=== PATIENT | male | born 1980 | race African-American/Black ===

== ENCOUNTER 2018-03-15 09:44 | Emergency (ER) | payer MEDICAID ==
[~2018-03-15] VITALS: Ht 182.9 cm; Wt 68.2 kg
[~2018-03-15 09:44] MED LIST: ALBU8.5H8 IH; BECL8.7A5 IH
[2018-03-15] MEDS ORDERED: ALBUTEROL SULFATE 2.5 MG/0.5 ML NEB SOLUTION NEB ONE (10:30)
[2018-03-15] MEDS ORDERED: IPRATROPIUM BROMIDE 0.5 MG/2.5 ML NEB SOLUTION NEB ONE (10:30)
[2018-03-15] MEDS ORDERED: PredniSONE 20 MG TABLET PO ONE (10:30)
[2018-03-15 10:40] LABS: BASOPHILS % (AUTO) 0.9 % (0.0-2.0); EOSINOPHILS % (AUTO) 0.3 % (1.0-6.0); HEMATOCRIT 45.4 % (41-53); HEMOGLOBIN 15.6 g/dL (13.5-17.5); LYMPHOCYTES # (AUTO) 0.8 K/uL (1.0-4.8); LYMPHOCYTES % (AUTO) 12.8 % (22.0-44.0); MEAN CORPUSCULAR HEMOGLOBIN 30.4 pg (26.0-34.0); MEAN CORPUSCULAR HGB CONC 34.3 G/dL (31.0-37.0); MEAN CORPUSCULAR VOLUME 89 fL (80-100); MONOCYTES # (AUTO) 0.7 K/uL (0.1-1.0); NEUTROPHILS # (AUTO) 4.8 K/uL (1.8-7.7); PLATELET COUNT (AUTO) 176 K/uL (150-450); RED BLOOD CELL COUNT(AUTO) 5.13 MIL/uL (4.50-5.90); RED CELL DISTRIBUTION WIDTH 12.9 % (11.5-14.5)
[2018-03-15] MEDS ORDERED: 0.9% SODIUM CHLORIDE 5 ML NEB SOLUTION NEB ONE ×2 (10:42→11:40)
[2018-03-15 10:48] LABS: ANION GAP 5 mmol/L (8-16); CARBON DIOXIDE 29 mmol/L (22-29); CHLORIDE 101 mmol/L (98-107); CREATININE 1.07 mg/dL (0.60-1.30); GLOMERULAR FILTR. RATE CALC > 60 mL/min (>60); GLUCOSE,RANDOM 103 mg/dL (70-110); SODIUM SERUM 135 mmol/L (136-145); UREA NITROGEN, BLOOD 12 mg/dL (7-18)
[2018-03-15 10:56] LABS: ALANINE AMINOTRANSFERASE 27 U/L (12-78); ALBUMIN 3.6 g/dL (3.4-5.0); ALKALINE PHOSPHATASE 81 U/L (46-116); ASPARTATE AMINOTRANSFERASE 24 U/L (15-37); BILIRUBIN,TOTAL 0.6 mg/dL (0.1-1.0); TOTAL PROTEIN, SERUM 7.8 g/dL (6.4-8.2)
[2018-03-15] MEDS ORDERED: AZITHROMYCIN 500 MG/NS 250 ML IV ONE (11:15)
[2018-03-15] MEDS ORDERED: ALBUTEROL SULFATE 5 MG/ML 20 ML NEB SOLN [BULK] NEB ONE (11:15)
[2018-03-15] MEDS ORDERED: ACETAMINOPHEN 500 MG TABLET PO ONE (14:00)
[2018-03-15] MEDS ORDERED: SODIUM CHLORIDE 0.9% 2,000 ML IV ONE (14:00)
[2018-03-15] MEDS ORDERED: ALBUTEROL SULFATE HFA 90 MCG/PUFF 8 GM INHALER IH ONE (16:45)
[2018-03-15] MEDS ORDERED: BECLOMETHASONE DIPR HFA 80 MCG/PUFF 10.6 GM INHALER IH ONE (16:45)
[2018-03-15 17:06] LABS: AMPHET/METH SCREEN,URINE NEGATIVE (NEGATIVE); BARBITURATE SCREEN, URINE NEGATIVE (NEGATIVE); BENZODIAZEPINES SCREEN,URINE NEGATIVE (NEGATIVE); CANNABINOID SCREEN,URINE NEGATIVE (NEGATIVE); COCAINE SCREEN,URINE NEGATIVE (NEGATIVE); METHADONE SCREEN, URINE NEGATIVE (NEGATIVE); OPIATE SCREEN,URINE NEGATIVE (NEGATIVE)
[2018-03-15 17:07] LABS: PHENCYCLIDINE SCREEN,URINE NEGATIVE (NEGATIVE)
[2018-03-15 17:23] VITALS: BP 121/79
== END 2018-03-15 17:25 | disposition home or self-care (01) ==
LOC: EMS 09:45
DX: J45.901 Unspecified asthma with (acute) exacerbation (principal); R00.0 Tachycardia, unspecified; F17.210 Nicotine dependence, cigarettes, uncomplicated
CPT/HCPCS: 36415; 71046; 80053; 80307; 85025; 93005; 94644; 96365; 96366; 99285; J0456; J7030; J7512; J7611; J7613; 94640; J3535

== ENCOUNTER 2018-10-19 19:04 | Emergency (ER) | payer MEDICAID ==
[~2018-10-19] VITALS: Ht 182.9 cm; Wt 80.0 kg
[~2018-10-19 19:04] MED LIST changes: -BECL8.7A5 IH
[2018-10-19 19:12] VITALS: BP 141/71
== END 2018-10-19 23:10 | disposition left against medical advice (07) ==
LOC: EMS 19:05
DX: R05 Cough (principal); Z53.21 Procedure and treatment not carried out due to patient leaving prior to being seen by health care provider

== ENCOUNTER 2018-10-20 07:41 | Emergency (ER) | payer MEDICAID, OTHER ==
[~2018-10-20] VITALS: Ht 182.9 cm; Wt 79.5 kg
[2018-10-20] MEDS ORDERED: ALBUTEROL SULFATE HFA 90 MCG/PUFF 8 GM INHALER IH ONE (08:45)
[2018-10-20 09:43] VITALS: BP 144/93
== END 2018-10-20 09:56 | disposition home or self-care (01) ==
LOC: EMS 07:42
DX: J40 Bronchitis, not specified as acute or chronic (principal); J43.9 Emphysema, unspecified; J45.909 Unspecified asthma, uncomplicated; F17.210 Nicotine dependence, cigarettes, uncomplicated
CPT/HCPCS: 94640; J3535

== ENCOUNTER 2019-06-23 16:13 | Emergency (ER) | payer OTHER ==
[~2019-06-23] VITALS: Ht 182.9 cm; Wt 68.2 kg
[2019-06-23] MEDS ORDERED: 0.9% SODIUM CHLORIDE 5 ML NEB SOLUTION NEB ONE ×2 (16:28→18:00)
[2019-06-23] MEDS ORDERED: ALBUTEROL SULFATE 2.5 MG/0.5 ML NEB SOLUTION NEB ONE (16:30)
[2019-06-23] MEDS ORDERED: IPRATROPIUM BROMIDE 0.5 MG/2.5 ML NEB SOLUTION NEB ONE ×2 (16:30→17:45)
[2019-06-23] MEDS ORDERED: DEXAMETHASONE SOD PHOS 4 MG/ML 5 ML VIAL IM ONE (17:45)
[2019-06-23] MEDS ORDERED: ACETAMINOPHEN 325 MG TABLET PO ONE (17:45)
[2019-06-23] MEDS ORDERED: LEVALBUTEROL HCL 1.25 MG/0.5 ML NEB SOLUTION NEB ONE (17:45)
[2019-06-23 19:20] VITALS: BP 131/76
[2019-06-23] MEDS ORDERED: ALBUTEROL SULFATE HFA 90 MCG/PUFF 8 GM INHALER IH ONE (19:30)
== END 2019-06-23 19:35 | disposition home or self-care (01) ==
LOC: EMS 16:16
DX: J45.909 Unspecified asthma, uncomplicated (principal); F17.210 Nicotine dependence, cigarettes, uncomplicated
CPT/HCPCS: 94640; 96372; 99285; J1100; 94644; J3535

== ENCOUNTER 2019-07-26 19:21 | Emergency (ER) | payer OTHER ==
[~2019-07-26] VITALS: Ht 182.9 cm; Wt 68.2 kg
[2019-07-26] MEDS ORDERED: 0.9% SODIUM CHLORIDE 5 ML NEB SOLUTION NEB ONE (19:54)
[2019-07-26] MEDS ORDERED: IPRATROPIUM BROMIDE 0.5 MG/2.5 ML NEB SOLUTION NEB ONE (20:00)
[2019-07-26] MEDS ORDERED: ALBUTEROL SULFATE HFA 90 MCG/PUFF 8 GM INHALER IH ONE (20:00)
[2019-07-26] MEDS ORDERED: ALBUTEROL SULFATE 5 MG/ML 20 ML NEB SOLN [BULK] NEB ONE (20:00)
[2019-07-26] MEDS ORDERED: ACETAMINOPHEN 500 MG TABLET PO ONE (20:15)
[2019-07-26 21:13] VITALS: BP 139/83
== END 2019-07-26 21:29 | disposition home or self-care (01) ==
LOC: EMS 19:22
DX: J45.901 Unspecified asthma with (acute) exacerbation (principal); F17.210 Nicotine dependence, cigarettes, uncomplicated; Z79.899 Other long term (current) drug therapy
CPT/HCPCS: 94640; 94644; J3535

== ENCOUNTER 2019-08-13 08:40 | Emergency (ER) | payer OTHER ==
[~2019-08-13] VITALS: Ht 182.9 cm; Wt 68.2 kg
[2019-08-13] MEDS ORDERED: SYMB8060 IH (08:49)
[2019-08-13] MEDS ORDERED: MethylPREDNISolone SOD SUCC 125 MG/2 ML VIAL IM ONE (09:15)
[2019-08-13] MEDS ORDERED: IPRATROPIUM BROMIDE 0.5 MG/2.5 ML NEB SOLUTION NEB ONE (09:15)
[2019-08-13] MEDS ORDERED: ALBUTEROL SULFATE 2.5 MG/0.5 ML NEB SOLUTION NEB ONE (09:15)
[2019-08-13] MEDS ORDERED: ALBUTEROL SULFATE HFA 90 MCG/PUFF 8 GM INHALER IH ONE (09:30)
[2019-08-13] MEDS ORDERED: ACETAMINOPHEN 500 MG TABLET PO ONE (11:00)
[2019-08-13 12:02] VITALS: BP 132/80
== END 2019-08-13 12:13 | disposition home or self-care (01) ==
LOC: EMS 08:41
DX: R05 Cough (principal); J45.901 Unspecified asthma with (acute) exacerbation; F17.210 Nicotine dependence, cigarettes, uncomplicated
CPT/HCPCS: 94640; 96372; 99284; 99406; J2930; J3535

== ENCOUNTER 2019-09-02 08:06 | Emergency (ER) | payer OTHER ==
[~2019-09-02] VITALS: Ht 170.2 cm; Wt 68.2 kg
[~2019-09-02 08:06] MED LIST changes: +SYMB8060 IH
[2019-09-02] MEDS ORDERED: BECL10.6 IH (08:36)
[2019-09-02 08:58] LABS: BASOPHILS % (AUTO) 0.2 % (0.0-2.0); EOSINOPHILS % (AUTO) 0.1 % (1.0-6.0); HEMATOCRIT 44.5 % (41-53); HEMOGLOBIN 14.5 g/dL (13.5-17.5); LYMPHOCYTES # (AUTO) 0.4 K/uL (1.0-4.8); LYMPHOCYTES % (AUTO) 2.9 % (22.0-44.0); MEAN CORPUSCULAR HEMOGLOBIN 30.3 pg (26.0-34.0); MEAN CORPUSCULAR HGB CONC 32.5 G/dL (31.0-37.0); MEAN CORPUSCULAR VOLUME 93 fL (80-100); MONOCYTES # (AUTO) 0.9 K/uL (0.1-1.0); MONOCYTES % (AUTO) 5.8 % (2.0-9.0); PLATELET COUNT (AUTO) 226 K/uL (150-450); RED BLOOD CELL COUNT(AUTO) 4.77 MIL/uL (4.50-5.90); RED CELL DISTRIBUTION WIDTH 12.9 % (11.5-14.5)
[2019-09-02 09:07] LABS: ANION GAP 5 mmol/L (8-16); CALCIUM, TOTAL 8.7 mg/dL (8.8-10.5); CARBON DIOXIDE 33 mmol/L (22-29); CHLORIDE 103 mmol/L (98-107); CREATININE 1.05 mg/dL (0.60-1.30); GLOMERULAR FILTR. RATE CALC > 60 mL/min (>60); GLUCOSE,RANDOM 122 mg/dL (70-110); POTASSIUM 3.9 mmol/L (3.5-5.1); SODIUM SERUM 141 mmol/L (136-145); UREA NITROGEN, BLOOD 11 mg/dL (7-18)
[2019-09-02 09:12] LABS: ALANINE AMINOTRANSFERASE 42 U/L (12-78); ALBUMIN 3.7 g/dL (3.4-5.0); ALKALINE PHOSPHATASE 91 U/L (46-116); ASPARTATE AMINOTRANSFERASE 34 U/L (15-37); BILIRUBIN,TOTAL 0.8 mg/dL (0.1-1.0); TOTAL PROTEIN, SERUM 8.1 g/dL (6.4-8.2)
[2019-09-02] MEDS ORDERED: ALBUTEROL SULFATE 2.5 MG/0.5 ML NEB SOLUTION NEB ONE (09:15)
[2019-09-02] MEDS ORDERED: SODIUM CHLORIDE 0.9% 1,000 ML IV ONE ×2 (09:15→10:15)
[2019-09-02] MEDS ORDERED: IPRATROPIUM BROMIDE 0.5 MG/2.5 ML NEB SOLUTION NEB ONE (09:15)
[2019-09-02] MEDS ORDERED: DiphenhydrAMINE HCL 50 MG/ML VIAL IVP ONE (09:30)
[2019-09-02] MEDS ORDERED: MethylPREDNISolone SOD SUCC 125 MG/2 ML VIAL IVP ONE (09:30)
[2019-09-02] MEDS ORDERED: ACETAMINOPHEN 500 MG TABLET PO ONE (09:30)
[2019-09-02] MEDS ORDERED: METOCLOPRAMIDE HCL 5 MG/ML 2 ML VIAL IVP ONE (09:30)
[2019-09-02] MEDS ORDERED: AZITHROMYCIN 250 MG TABLET PO ONE (10:15)
[2019-09-02] MEDS ORDERED: ALBUTEROL SULFATE HFA 90 MCG/PUFF 8 GM INHALER IH ONE (11:30)
[2019-09-02 12:16] VITALS: BP 128/78
== END 2019-09-02 13:19 | disposition home or self-care (01) ==
LOC: EMS 08:07
DX: J18.9 Pneumonia, unspecified organism (principal); J45.909 Unspecified asthma, uncomplicated; Z79.899 Other long term (current) drug therapy
CPT/HCPCS: 36415; 71046; 80053; 84484; 85025; 93005; 94640; 96374; 96375; 99284; J1200; J2765; J2930; J7030; J3535

== ENCOUNTER 2019-10-30 02:28 | Emergency (ER) | payer OTHER ==
[~2019-10-30] VITALS: Ht 182.9 cm; Wt 68.2 kg
[~2019-10-30 02:28] MED LIST changes: +BECL10.6 IH
[2019-10-30] MEDS ORDERED: ALBUTEROL SULFATE 2.5 MG/0.5 ML NEB SOLUTION NEB ONE ×2 (02:45→03:35)
[2019-10-30] MEDS ORDERED: MethylPREDNISolone SOD SUCC 125 MG/2 ML VIAL IVP ONE (02:45)
[2019-10-30] MEDS ORDERED: 0.9% SODIUM CHLORIDE 5 ML NEB SOLUTION NEB ONE (02:54)
[2019-10-30 03:07] LABS: BASOPHILS % (AUTO) 0.8 % (0.0-2.0); EOSINOPHILS % (AUTO) 9.4 % (1.0-6.0); HEMATOCRIT 47.8 % (41-53); HEMOGLOBIN 15.4 g/dL (13.5-17.5); LYMPHOCYTES # (AUTO) 1.6 K/uL (1.0-4.8); LYMPHOCYTES % (AUTO) 28.4 % (22.0-44.0); MEAN CORPUSCULAR HEMOGLOBIN 30.1 pg (26.0-34.0); MEAN CORPUSCULAR HGB CONC 32.2 G/dL (31.0-37.0); MEAN CORPUSCULAR VOLUME 93 fL (80-100); MONOCYTES # (AUTO) 0.5 K/uL (0.1-1.0); MONOCYTES % (AUTO) 8.3 % (2.0-9.0); NEUTROPHILS # (AUTO) 3.1 K/uL (1.8-7.7); NEUTROPHILS % (AUTO) 53.1 % (40.0-70.0); PLATELET COUNT (AUTO) 221 K/uL (150-450); RED BLOOD CELL COUNT(AUTO) 5.12 MIL/uL (4.50-5.90); RED CELL DISTRIBUTION WIDTH 12.5 % (11.5-14.5)
[2019-10-30 03:15] LABS: ANION GAP 6 mmol/L (8-16); CALCIUM, TOTAL 8.9 mg/dL (8.8-10.5); CARBON DIOXIDE 30 mmol/L (22-29); CHLORIDE 102 mmol/L (98-107); CREATININE 0.97 mg/dL (0.60-1.30); GLOMERULAR FILTR. RATE CALC > 60 mL/min (>60); GLUCOSE,RANDOM 83 mg/dL (70-110); POTASSIUM 4.5 mmol/L (3.5-5.1); SODIUM SERUM 138 mmol/L (136-145); UREA NITROGEN, BLOOD 5 mg/dL (7-18)
[2019-10-30 03:18] LABS: INR 1.1 (0.9-1.1); PROTHROMBIN TIME 10.8 SEC (9.4-11.6)
[2019-10-30 03:27] LABS: B-TYPE NATRIURETIC PEPTIDE 22 pg/mL (0-100)
[2019-10-30 03:40] LABS: ALANINE AMINOTRANSFERASE 32 U/L (12-78); ALBUMIN 3.7 g/dL (3.4-5.0); ALKALINE PHOSPHATASE 85 U/L (46-116); ASPARTATE AMINOTRANSFERASE 32 U/L (15-37); BILIRUBIN,TOTAL 0.2 mg/dL (0.1-1.0); CREATINE KINASE, TOTAL ONLY 201 U/L (39-308); TOTAL PROTEIN, SERUM 7.9 g/dL (6.4-8.2)
[2019-10-30] MEDS ORDERED: ALBUTEROL SULFATE HFA 90 MCG/PUFF 8 GM INHALER IH ONE (04:15)
[2019-10-30 04:19] LABS: INFLUENZA TYPE A NEGATIVE FOR TYPE A (NEGATIVE); INFLUENZA TYPE B NEGATIVE FOR TYPE B (NEGATIVE)
[2019-10-30] MEDS ORDERED: IBUPROFEN 600 MG TABLET ONE (04:54)
[2019-10-30 04:55] VITALS: BP 136/88
[2019-10-30] MEDS ORDERED: IBUPROFEN 600 MG TABLET PO ONE (04:55)
== END 2019-10-30 05:18 | disposition home or self-care (01) ==
LOC: EMS 02:29
DX: J45.909 Unspecified asthma, uncomplicated (principal); Z03.818 Encounter for observation for suspected exposure to other biological agents ruled out
CPT/HCPCS: 36415; 71045; 80053; 82550; 83880; 84484; 85025; 85610; 85730; 87635; 87804; 93005; 94640; 96374; 99285; J2930; 94060; J3535

== ENCOUNTER 2019-11-04 03:55 | Emergency (ER) | payer OTHER ==
[~2019-11-04] VITALS: Ht 182.9 cm; Wt 55.6 kg
[2019-11-04] MEDS ORDERED: ALBUTEROL SULFATE HFA 90 MCG/PUFF 8 GM INHALER IH ONE (04:45)
[2019-11-04] MEDS ORDERED: MethylPREDNISolone SOD SUCC 125 MG/2 ML VIAL IM ONE (04:45)
[2019-11-04] MEDS ORDERED: EPINEPHrine 1:1,000 [1 MG/ML] AMP SQ ONE (04:45)
[2019-11-04] MEDS ORDERED: MethylPREDNISolone SOD SUCC 125 MG/2 ML VIAL IVP ONE (05:15)
[2019-11-04 06:08] VITALS: BP 130/88
== END 2019-11-04 06:11 | disposition home or self-care (01) ==
LOC: EMS 03:55
DX: J45.901 Unspecified asthma with (acute) exacerbation (principal); Z79.899 Other long term (current) drug therapy
CPT/HCPCS: 94640; 96372; 96374; 99284; J0171; J2930; J3535

== ENCOUNTER 2019-12-22 23:14 | Emergency (ER) | payer OTHER ==
[~2019-12-22] VITALS: Ht 190.5 cm; Wt 79.5 kg
[2019-12-22] MEDS ORDERED: MethylPREDNISolone SOD SUCC 125 MG/2 ML VIAL IVP ONE (23:45)
[2019-12-22] MEDS ORDERED: MAGNESIUM SULFATE 2 GM/WATER 50 ML IV ONE (23:45)
[2019-12-22] MEDS ORDERED: ALBUTEROL SULFATE 5 MG/ML 20 ML NEB SOLN [BULK] NEB ONE (23:45)
[2019-12-23 00:16] LABS: BASOPHILS % (AUTO) 1.1 % (0.0-2.0); EOSINOPHILS % (AUTO) 2.3 % (1.0-6.0); HEMATOCRIT 47.8 % (41-53); HEMOGLOBIN 15.8 g/dL (13.5-17.5); LYMPHOCYTES # (AUTO) 1.5 K/uL (1.0-4.8); LYMPHOCYTES % (AUTO) 26.1 % (22.0-44.0); MEAN CORPUSCULAR HEMOGLOBIN 30.3 pg (26.0-34.0); MEAN CORPUSCULAR HGB CONC 33.1 G/dL (31.0-37.0); MEAN CORPUSCULAR VOLUME 92 fL (80-100); MONOCYTES # (AUTO) 0.6 K/uL (0.1-1.0); MONOCYTES % (AUTO) 9.9 % (2.0-9.0); NEUTROPHILS # (AUTO) 3.6 K/uL (1.8-7.7); NEUTROPHILS % (AUTO) 60.6 % (40.0-70.0); PLATELET COUNT (AUTO) 287 K/uL (150-450); RED BLOOD CELL COUNT(AUTO) 5.21 MIL/uL (4.50-5.90); RED CELL DISTRIBUTION WIDTH 13.2 % (11.5-14.5)
[2019-12-23 00:45] LABS: ANION GAP 13 mmol/L (8-16); CALCIUM, TOTAL 9.2 mg/dL (8.8-10.5); CARBON DIOXIDE 27 mmol/L (22-29); CHLORIDE 102 mmol/L (98-107); CREATININE 1.03 mg/dL (0.60-1.30); GLOMERULAR FILTR. RATE CALC > 60 mL/min (>60); GLUCOSE,RANDOM 100 mg/dL (70-110); SODIUM SERUM 142 mmol/L (136-145); UREA NITROGEN, BLOOD 7 mg/dL (7-18)
[2019-12-23 00:51] LABS: ALANINE AMINOTRANSFERASE 60 U/L (12-78); ALBUMIN 4.1 g/dL (3.4-5.0); ALKALINE PHOSPHATASE 93 U/L (46-116); ASPARTATE AMINOTRANSFERASE 48 U/L (15-37); BILIRUBIN,TOTAL 0.2 mg/dL (0.1-1.0); TOTAL PROTEIN, SERUM 9.2 g/dL (6.4-8.2)
[2019-12-23 01:57] VITALS: BP 125/77
== END 2019-12-23 02:38 | disposition home or self-care (01) ==
LOC: EMS 23:15
DX: J45.901 Unspecified asthma with (acute) exacerbation (principal); Z03.818 Encounter for observation for suspected exposure to other biological agents ruled out
CPT/HCPCS: 36415; 71045; 80053; 83880; 85025; 87635; 94644; 96365; 96366; 96375; 99285; J2930; J3475

== ENCOUNTER 2020-01-13 08:46 | Inpatient (IN) | payer OTHER ==
[~2020-01-13] VITALS: Ht 185.4 cm; Wt 60.0 kg
[~2020-01-13 08:46] MED LIST changes: +ALBUTEROL SULFATE 2.5 MG/0.5 ML NEB SOLUTION NEB ONE
[2020-01-13] MEDS ORDERED: ACETAMINOPHEN 1000 MG/ISO-OSM 100 ML IV ONE (09:00)
[2020-01-13] MEDS ORDERED: MethylPREDNISolone SOD SUCC 125 MG/2 ML VIAL IVP ONE (09:00)
[2020-01-13] MEDS ORDERED: ACETAMINOPHEN 500 MG TABLET PO ONE (09:00)
[2020-01-13] MEDS ORDERED: SODIUM CHLORIDE 0.9% 1,000 ML IV ONE ×2 (09:00→10:45)
[2020-01-13] MEDS ORDERED: ALBUTEROL SULFATE 2.5 MG/0.5 ML NEB SOLUTION NEB ONE ×2 (09:15→13:00)
[2020-01-13] MEDS ORDERED: CefTRIAXone 1 GM/DEXTROSE 50 ML IV ONE (09:30)
[2020-01-13] MEDS ORDERED: AZITHROMYCIN 500 MG/NS 250 ML IV ONE (09:30)
[2020-01-13 10:04] LABS: HEMATOCRIT 43.1 % (41-53); MEAN CORPUSCULAR HEMOGLOBIN 30.5 pg (26.0-34.0); MEAN CORPUSCULAR HGB CONC 32.5 G/dL (31.0-37.0); MEAN CORPUSCULAR VOLUME 94 fL (80-100); PLATELET COUNT (AUTO) 160 K/uL (150-450); RED CELL DISTRIBUTION WIDTH 13.4 % (11.5-14.5)
[2020-01-13 10:24] LABS: D-DIMER 1.15 mg/L FEU (0.00-0.50); INR 1.1 (0.9-1.1); PROTHROMBIN TIME 10.9 SEC (9.4-11.6)
[2020-01-13 10:27] LABS: BAND NEUTROPHILS % (MANUAL) 6 % (0-5); LYMPHOCYTES % (MANUAL) 9 % (22-44); MONOCYTES % (MANUAL) 5 % (2-9); REACTIVE LYMPHOCYTES 2 % (0-0); SEGMENTED NEUTROPHILS % 78 % (40-70)
[2020-01-13 10:28] LABS: B-TYPE NATRIURETIC PEPTIDE 36 pg/mL (0-100)
[2020-01-13 10:30] LABS: ANION GAP 12 mmol/L (8-16); CALCIUM, TOTAL 8.2 mg/dL (8.8-10.5); CARBON DIOXIDE 26 mmol/L (22-29); CHLORIDE 100 mmol/L (98-107); CREATININE 1.02 mg/dL (0.60-1.30); GLOMERULAR FILTR. RATE CALC > 60 mL/min (>60); GLUCOSE,RANDOM 110 mg/dL (70-110); SODIUM SERUM 138 mmol/L (136-145); UREA NITROGEN, BLOOD 9 mg/dL (7-18)
[2020-01-13] MEDS ORDERED: IPRATROPIUM BROMIDE 0.5 MG/2.5 ML NEB SOLUTION NEB ONE (10:30)
[2020-01-13] MEDS ORDERED: ALBUTEROL SULFATE 5 MG/ML 20 ML NEB SOLN [BULK] NEB ONE (10:35)
[2020-01-13 10:44] LABS: LACTIC ACID 4.4 mmol/L (0.4-2.0)
[2020-01-13 10:55] LABS: INFLUENZA TYPE A NEGATIVE FOR TYPE A (NEGATIVE); INFLUENZA TYPE B NEGATIVE FOR TYPE B (NEGATIVE)
[2020-01-13 11:06] LABS: ALANINE AMINOTRANSFERASE 144 U/L (12-78); ALBUMIN 3.7 g/dL (3.4-5.0); ALKALINE PHOSPHATASE 71 U/L (46-116); ASPARTATE AMINOTRANSFERASE 108 U/L (15-37); BILIRUBIN,TOTAL 0.6 mg/dL (0.1-1.0); C-REACTIVE PROTEIN QUANT 2.55 mg/dL (0.00-0.30); CREATINE KINASE, TOTAL ONLY 519 U/L (39-308); FERRITIN 93 ng/mL (26-388); LACTATE DEHYDROGENASE 112 U/L (85-227)
[2020-01-13] MEDS ORDERED: ACETAMINOPHEN 325 MG TABLET PO PRN (11:15)
[2020-01-13] MEDS ORDERED: 0.9% SODIUM CHLORIDE 10 ML SYRINGE IVP PRN (11:15)
[2020-01-13] MEDS ORDERED: ONDANSETRON HCL 4 MG/2 ML VIAL IVP PRN ×2 (11:15→22:15)
[2020-01-13 14:36] VITALS: BP 154/98
[2020-01-13 16:17] LABS: APPEARANCE,URINE CLEAR (CLEAR); BILIRUBIN,URINE NEGATIVE (NEGATIVE); GLUCOSE, URINE (UA) 500 mg/dL (NEGATIVE); KETONES,URINE NEGATIVE (NEGATIVE); LEUKOCYTE ESTERASE ,URINE NEGATIVE (NEGATIVE); NITRATE,URINE NEGATIVE (NEGATIVE); OCCULT BLOOD,URINE NEGATIVE (NEGATIVE); PROTEIN,URINE NEGATIVE (NEGATIVE); UROBILINOGEN,URINE 0.2 mg/dL (<=1.0)
[2020-01-13 16:26] LABS: BACTERIA,URINE None Seen /HPF (None Seen); RBC,URINE None Seen /HPF (0-2); SQUAMOUS EPITHELIAL CELL,UR Rare /LPF (None Seen); WBC,URINE 0-2 /HPF (0-5)
[2020-01-13 18:50] VITALS: BP 142/90
[2020-01-13] MEDS: ZOLPIDEM TARTRATE 10 MG TABLET PO PRN (20:37)
[2020-01-13] MEDS ORDERED: ALBUTEROL SULFATE 2.5 MG/0.5 ML NEB SOLUTION NEB PRN (22:15)
[2020-01-13] MEDS ORDERED: BISACODYL 10 MG RECTAL RECTAL SUPPOSITORY PR PRN (22:15)
[2020-01-13] MEDS ORDERED: MAGNESIUM HYDROXIDE SUSPENSION 30 ML UDCUP PO PRN (22:15)
[2020-01-13] MEDS ORDERED: MORPHINE SULFATE 2 MG/ML SYRINGE IVP PRN (22:15)
[2020-01-13] MEDS ORDERED: ZOLPIDEM TARTRATE 5 MG TABLET PO PRN (22:15)
[2020-01-13] MEDS ORDERED: IPRATROPIUM BROMIDE 0.5 MG/2.5 ML NEB SOLUTION NEB PRN (22:15)
[2020-01-13 23:53] VITALS: BP 129/93
[2020-01-13] MEDS: MethylPREDNISolone SOD SUCC 125 MG/2 ML VIAL IVP SCH (23:54)
[2020-01-13] MEDS: HEPARIN SODIUM,PORCINE 5,000 UNITS/ML VIAL SQ SCH (23:54)
[2020-01-14] MEDS ORDERED: ALBUTEROL SULFATE 2.5 MG/0.5 ML NEB SOLUTION NEB PRN (00:45)
[2020-01-14] MEDS ORDERED: IPRATROPIUM BROMIDE 0.5 MG/2.5 ML NEB SOLUTION NEB PRN (00:45)
[2020-01-14] MEDS: IPRATROPIUM BROMIDE 0.5 MG/2.5 ML NEB SOLUTION NEB SCH ×4 (02:17→19:53)
[2020-01-14] MEDS: ALBUTEROL SULFATE 2.5 MG/0.5 ML NEB SOLUTION NEB SCH ×4 (02:17→19:52)
[2020-01-14] MEDS: LORazepam 0.5 MG TABLET PO PRN ×2 (04:18→12:08)
[2020-01-14] MEDS: MethylPREDNISolone SOD SUCC 125 MG/2 ML VIAL IVP SCH ×4 (05:35→23:30)
[2020-01-14 05:45] VITALS: BP 115/70
[2020-01-14 07:34] VITALS: BP 114/74
[2020-01-14 07:37] LABS: BASOPHILS % (AUTO) 0.1 % (0.0-2.0); EOSINOPHILS % (AUTO) 0 % (1.0-6.0); HEMATOCRIT 43.5 % (41-53); HEMOGLOBIN 13.9 g/dL (13.5-17.5); LYMPHOCYTES # (AUTO) 0.2 K/uL (1.0-4.8); MEAN CORPUSCULAR HEMOGLOBIN 29.7 pg (26.0-34.0); MEAN CORPUSCULAR HGB CONC 31.8 G/dL (31.0-37.0); MEAN CORPUSCULAR VOLUME 93 fL (80-100); MONOCYTES # (AUTO) 0.7 K/uL (0.1-1.0); MONOCYTES % (AUTO) 5.9 % (2.0-9.0); NEUTROPHILS # (AUTO) 11.2 K/uL (1.8-7.7); PLATELET COUNT (AUTO) 158 K/uL (150-450); RED BLOOD CELL COUNT(AUTO) 4.66 MIL/uL (4.50-5.90); RED CELL DISTRIBUTION WIDTH 13.2 % (11.5-14.5)
[2020-01-14 08:04] LABS: ALANINE AMINOTRANSFERASE 106 U/L (12-78); ALBUMIN 3.1 g/dL (3.4-5.0); ALKALINE PHOSPHATASE 44 U/L (46-116); ANION GAP 6 mmol/L (8-16); ASPARTATE AMINOTRANSFERASE 47 U/L (15-37); BILIRUBIN,TOTAL 0.7 mg/dL (0.1-1.0); CALCIUM, TOTAL 9.1 mg/dL (8.8-10.5); CARBON DIOXIDE 29 mmol/L (22-29); CHLORIDE 97 mmol/L (98-107); CREATININE 0.76 mg/dL (0.60-1.30); GLOMERULAR FILTR. RATE CALC > 60 mL/min (>60); GLUCOSE,RANDOM 127 mg/dL (70-110); POTASSIUM 4.6 mmol/L (3.5-5.1); SODIUM SERUM 132 mmol/L (136-145); TOTAL PROTEIN, SERUM 7.8 g/dL (6.4-8.2); UREA NITROGEN, BLOOD 8 mg/dL (7-18)
[2020-01-14 08:08] LABS: HEMOGLOBIN A1C 5.1 % (3.8-5.6)
[2020-01-14] MEDS ORDERED: SODIUM CHLORIDE 0.9% 250 ML IV ONE (08:19)
[2020-01-14] MEDS: DOCUSATE SODIUM 100 MG CAPSULE PO SCH ×2 (08:27→20:04)
[2020-01-14] MEDS: HEPARIN SODIUM,PORCINE 5,000 UNITS/ML VIAL SQ SCH ×3 (08:27→23:31)
[2020-01-14] MEDS: CefTRIAXone 1 GM/DEXTROSE 50 ML IV SCH (08:27)
[2020-01-14] MEDS: ACETAMINOPHEN 325 MG TABLET PO PRN (08:42)
[2020-01-14] MEDS: AZITHROMYCIN 500 MG/NS 250 ML IV SCH (10:13)
[2020-01-14 11:23] VITALS: BP 111/74
[2020-01-14] MEDS: HYDROCODONE/ACETAMINOPHEN 5-325 MG TABLET PO PRN ×2 (15:16→23:31)
[2020-01-14 16:19] VITALS: BP 125/79
[2020-01-14 19:59] VITALS: BP 110/71
[2020-01-15 01:03] VITALS: BP 107/68
[2020-01-15] MEDS: ALBUTEROL SULFATE 2.5 MG/0.5 ML NEB SOLUTION NEB SCH ×4 (01:21→20:29)
[2020-01-15] MEDS: IPRATROPIUM BROMIDE 0.5 MG/2.5 ML NEB SOLUTION NEB SCH ×4 (01:21→20:30)
[2020-01-15 05:11] VITALS: BP 118/78
[2020-01-15] MEDS: MethylPREDNISolone SOD SUCC 125 MG/2 ML VIAL IVP SCH ×3 (06:09→17:55)
[2020-01-15 07:11] VITALS: BP 114/72
[2020-01-15] MEDS: ACETAMINOPHEN 325 MG TABLET PO PRN ×2 (09:04→18:19)
[2020-01-15] MEDS: CefTRIAXone 1 GM/DEXTROSE 50 ML IV SCH (09:04)
[2020-01-15] MEDS: DOCUSATE SODIUM 100 MG CAPSULE PO SCH ×2 (09:04→20:40)
[2020-01-15] MEDS: HEPARIN SODIUM,PORCINE 5,000 UNITS/ML VIAL SQ SCH ×2 (10:00→15:55)
[2020-01-15] MEDS: AZITHROMYCIN 500 MG/NS 250 ML IV SCH (10:01)
[2020-01-15 11:43] VITALS: BP 108/64
[2020-01-15 15:47] VITALS: BP 108/68
[2020-01-15 20:40] VITALS: BP 111/70
[2020-01-15] MEDS: ZOLPIDEM TARTRATE 10 MG TABLET PO PRN (20:40)
[2020-01-15] MEDS ORDERED: DOCUSATE SODIUM 100 MG CAPSULE PO PRN (20:45)
[2020-01-15] MEDS ORDERED: IOVERSOL 350 MG/ML 100 ML VIAL ONE (22:32)
[2020-01-15] MEDS ORDERED: SODIUM CHLORIDE 0.9% 100 ML ONE (22:32)
[2020-01-16] VITALS (7 sets, daily range): BP systolic 106–134; BP diastolic 55–80
[2020-01-16] MEDS: HEPARIN SODIUM,PORCINE 5,000 UNITS/ML VIAL SQ SCH ×4 (00:01→23:00)
[2020-01-16] MEDS: ALBUTEROL SULFATE 2.5 MG/0.5 ML NEB SOLUTION NEB SCH ×2 (02:20→08:00)
[2020-01-16] MEDS: IPRATROPIUM BROMIDE 0.5 MG/2.5 ML NEB SOLUTION NEB SCH ×2 (02:20→08:00)
[2020-01-16] MEDS: MethylPREDNISolone SOD SUCC 125 MG/2 ML VIAL IVP SCH ×5 (06:29→23:00)
[2020-01-16 06:50] LABS: BASOPHILS % (AUTO) 0.1 % (0.0-2.0); EOSINOPHILS % (AUTO) 0 % (1.0-6.0); HEMATOCRIT 38.4 % (41-53); HEMOGLOBIN 12.3 g/dL (13.5-17.5); LYMPHOCYTES # (AUTO) 0.3 K/uL (1.0-4.8); LYMPHOCYTES % (AUTO) 1.9 % (22.0-44.0); MEAN CORPUSCULAR HEMOGLOBIN 29.7 pg (26.0-34.0); MEAN CORPUSCULAR VOLUME 93 fL (80-100); MONOCYTES # (AUTO) 1.2 K/uL (0.1-1.0); MONOCYTES % (AUTO) 8.6 % (2.0-9.0); NEUTROPHILS # (AUTO) 12.2 K/uL (1.8-7.7); PLATELET COUNT (AUTO) 248 K/uL (150-450); RED BLOOD CELL COUNT(AUTO) 4.14 MIL/uL (4.50-5.90); RED CELL DISTRIBUTION WIDTH 12.8 % (11.5-14.5)
[2020-01-16 06:58] LABS: ANION GAP 2 mmol/L (8-16); CARBON DIOXIDE 32 mmol/L (22-29); CHLORIDE 98 mmol/L (98-107); CREATININE 0.73 mg/dL (0.60-1.30); GLOMERULAR FILTR. RATE CALC > 60 mL/min (>60); GLUCOSE,RANDOM 122 mg/dL (70-110); POTASSIUM 4.2 mmol/L (3.5-5.1); SODIUM SERUM 132 mmol/L (136-145); UREA NITROGEN, BLOOD 13 mg/dL (7-18)
[2020-01-16 07:08] LABS: NEUTROPHILS % (AUTO) 89.4 % (40.0-70.0)
[2020-01-16] MEDS: CefTRIAXone 1 GM/DEXTROSE 50 ML IV SCH (08:48)
[2020-01-16] MEDS: PANTOPRAZOLE SODIUM 40 MG DR TABLET PO SCH ×2 (08:48)
[2020-01-16] MEDS: HYDROCODONE/ACETAMINOPHEN 5-325 MG TABLET PO PRN (09:03)
[2020-01-16] MEDS: AZITHROMYCIN 500 MG/NS 250 ML IV SCH (11:37)
[2020-01-16] MEDS ORDERED: ALBUTEROL SULFATE/IPRATROPIUM 100-20 MCG/SPRAY 4 GM INHALER IH PRN (12:00)
[2020-01-16] MEDS: ALBUTEROL SULFATE/IPRATROPIUM 100-20 MCG/SPRAY 4 GM INHALER IH SCH ×2 (14:06→19:00)
[2020-01-16] MEDS ORDERED: SODIUM CHLORIDE 3% 15 ML NEB SOLUTION NEB ONE (14:43)
[2020-01-16] MEDS: ACETAMINOPHEN 325 MG TABLET PO PRN (21:25)
[2020-01-16] MEDS: ZOLPIDEM TARTRATE 10 MG TABLET PO PRN (21:31)
[2020-01-17] MEDS ORDERED: SODIUM CHLORIDE 3% 15 ML NEB SOLUTION NEB ONE ×2 (02:47→15:05)
[2020-01-17 04:18] VITALS: BP 120/71
[2020-01-17] MEDS: MethylPREDNISolone SOD SUCC 125 MG/2 ML VIAL IVP SCH ×4 (05:05→23:16)
[2020-01-17] MEDS: ALBUTEROL SULFATE/IPRATROPIUM 100-20 MCG/SPRAY 4 GM INHALER IH SCH ×5 (05:06→23:16)
[2020-01-17 07:50] VITALS: BP 148/92
[2020-01-17 09:27] LABS: EOSINOPHILS % (AUTO) 0.1 % (1.0-6.0); HEMATOCRIT 39.4 % (41-53); HEMOGLOBIN 12.5 g/dL (13.5-17.5); LYMPHOCYTES # (AUTO) 0.3 K/uL (1.0-4.8); LYMPHOCYTES % (AUTO) 2.6 % (22.0-44.0); MEAN CORPUSCULAR HEMOGLOBIN 29.6 pg (26.0-34.0); MEAN CORPUSCULAR HGB CONC 31.8 G/dL (31.0-37.0); MEAN CORPUSCULAR VOLUME 93 fL (80-100); MONOCYTES % (AUTO) 8.4 % (2.0-9.0); NEUTROPHILS # (AUTO) 10.4 K/uL (1.8-7.7); PLATELET COUNT (AUTO) 260 K/uL (150-450); RED BLOOD CELL COUNT(AUTO) 4.24 MIL/uL (4.50-5.90); RED CELL DISTRIBUTION WIDTH 13.1 % (11.5-14.5)
[2020-01-17 09:32] LABS: NEUTROPHILS % (AUTO) 88.9 % (40.0-70.0)
[2020-01-17] MEDS: CefTRIAXone 1 GM/DEXTROSE 50 ML IV SCH (09:34)
[2020-01-17] MEDS: PANTOPRAZOLE SODIUM 40 MG DR TABLET PO SCH (09:34)
[2020-01-17] MEDS: ACETAMINOPHEN 325 MG TABLET PO PRN ×2 (09:34→21:34)
[2020-01-17] MEDS: HEPARIN SODIUM,PORCINE 5,000 UNITS/ML VIAL SQ SCH ×3 (09:35→23:15)
[2020-01-17 10:01] LABS: ALANINE AMINOTRANSFERASE 65 U/L (12-78); ALBUMIN 2.5 g/dL (3.4-5.0); ALKALINE PHOSPHATASE 66 U/L (46-116); ANION GAP 3 mmol/L (8-16); ASPARTATE AMINOTRANSFERASE 42 U/L (15-37); BILIRUBIN,TOTAL 0.4 mg/dL (0.1-1.0); CALCIUM, TOTAL 9.3 mg/dL (8.8-10.5); CARBON DIOXIDE 35 mmol/L (22-29); CHLORIDE 100 mmol/L (98-107); GLOMERULAR FILTR. RATE CALC > 60 mL/min (>60); GLUCOSE,RANDOM 144 mg/dL (70-110); POTASSIUM 4.3 mmol/L (3.5-5.1); SODIUM SERUM 138 mmol/L (136-145); TOTAL PROTEIN, SERUM 7.6 g/dL (6.4-8.2); UREA NITROGEN, BLOOD 12 mg/dL (7-18)
[2020-01-17 11:30] VITALS: BP 116/72
[2020-01-17] MEDS: AZITHROMYCIN 500 MG/NS 250 ML IV SCH (13:31)
[2020-01-17 16:20] VITALS: BP 139/82
[2020-01-17 20:10] VITALS: BP 134/89
[2020-01-17] MEDS: ZOLPIDEM TARTRATE 10 MG TABLET PO PRN (21:34)
[2020-01-17 23:25] VITALS: BP 130/79
[2020-01-18 04:21] VITALS: BP 128/79
[2020-01-18] MEDS: ALBUTEROL SULFATE/IPRATROPIUM 100-20 MCG/SPRAY 4 GM INHALER IH SCH ×3 (05:29→17:56)
[2020-01-18] MEDS: MethylPREDNISolone SOD SUCC 125 MG/2 ML VIAL IVP SCH (05:30)
[2020-01-18 07:32] LABS: BASOPHILS % (AUTO) 0.2 % (0.0-2.0); EOSINOPHILS % (AUTO) 0 % (1.0-6.0); HEMATOCRIT 37.4 % (41-53); HEMOGLOBIN 12.3 g/dL (13.5-17.5); LYMPHOCYTES # (AUTO) 0.5 K/uL (1.0-4.8); MEAN CORPUSCULAR HEMOGLOBIN 30.5 pg (26.0-34.0); MEAN CORPUSCULAR HGB CONC 32.8 G/dL (31.0-37.0); MEAN CORPUSCULAR VOLUME 93 fL (80-100); MONOCYTES # (AUTO) 1.4 K/uL (0.1-1.0); MONOCYTES % (AUTO) 14.1 % (2.0-9.0); NEUTROPHILS # (AUTO) 8.1 K/uL (1.8-7.7); NEUTROPHILS % (AUTO) 80.7 % (40.0-70.0); PLATELET COUNT (AUTO) 249 K/uL (150-450); RED BLOOD CELL COUNT(AUTO) 4.03 MIL/uL (4.50-5.90); RED CELL DISTRIBUTION WIDTH 13.1 % (11.5-14.5)
[2020-01-18 07:48] LABS: ALANINE AMINOTRANSFERASE 77 U/L (12-78); ALBUMIN 2.2 g/dL (3.4-5.0); ALKALINE PHOSPHATASE 64 U/L (46-116); ANION GAP 3 mmol/L (8-16); ASPARTATE AMINOTRANSFERASE 43 U/L (15-37); BILIRUBIN,TOTAL 0.3 mg/dL (0.1-1.0); CALCIUM, TOTAL 8.8 mg/dL (8.8-10.5); CARBON DIOXIDE 34 mmol/L (22-29); CHLORIDE 101 mmol/L (98-107); CREATININE 0.84 mg/dL (0.60-1.30); GLOMERULAR FILTR. RATE CALC > 60 mL/min (>60); GLUCOSE,RANDOM 116 mg/dL (70-110); POTASSIUM 4.1 mmol/L (3.5-5.1); SODIUM SERUM 138 mmol/L (136-145); TOTAL PROTEIN, SERUM 6.8 g/dL (6.4-8.2); UREA NITROGEN, BLOOD 11 mg/dL (7-18)
[2020-01-18 08:34] VITALS: BP 139/90
[2020-01-18] MEDS: PANTOPRAZOLE SODIUM 40 MG DR TABLET PO SCH (08:40)
[2020-01-18] MEDS: HEPARIN SODIUM,PORCINE 5,000 UNITS/ML VIAL SQ SCH ×3 (08:40→23:56)
[2020-01-18] MEDS: CefTRIAXone 1 GM/DEXTROSE 50 ML IV SCH (08:40)
[2020-01-18] MEDS: AZITHROMYCIN 500 MG/NS 250 ML IV SCH (10:18)
[2020-01-18] MEDS ORDERED: SODIUM CHLORIDE 0.9% 500 ML IV ONE (11:25)
[2020-01-18] MEDS: MethylPREDNISolone SOD SUCC 40 MG/ML VIAL IVP SCH ×3 (11:54→23:56)
[2020-01-18 12:11] VITALS: BP 142/75
[2020-01-18 16:04] VITALS: BP 129/84
[2020-01-18] MEDS: ACETAMINOPHEN 325 MG TABLET PO PRN ×2 (16:15→22:08)
[2020-01-18 20:33] VITALS: BP 117/68
[2020-01-18] MEDS: ZOLPIDEM TARTRATE 10 MG TABLET PO PRN (22:08)
[2020-01-19] MEDS: ALBUTEROL SULFATE/IPRATROPIUM 100-20 MCG/SPRAY 4 GM INHALER IH SCH ×3 (00:03→12:05)
[2020-01-19 00:33] VITALS: BP 133/69
[2020-01-19 05:38] VITALS: BP 137/83
[2020-01-19] MEDS: MethylPREDNISolone SOD SUCC 40 MG/ML VIAL IVP SCH (05:45)
[2020-01-19 07:34] LABS: BASOPHILS % (AUTO) 0.3 % (0.0-2.0); EOSINOPHILS % (AUTO) 0 % (1.0-6.0); HEMATOCRIT 38.9 % (41-53); HEMOGLOBIN 12.5 g/dL (13.5-17.5); LYMPHOCYTES # (AUTO) 0.6 K/uL (1.0-4.8); LYMPHOCYTES % (AUTO) 5.2 % (22.0-44.0); MEAN CORPUSCULAR HEMOGLOBIN 29.7 pg (26.0-34.0); MEAN CORPUSCULAR VOLUME 93 fL (80-100); MONOCYTES # (AUTO) 1.5 K/uL (0.1-1.0); MONOCYTES % (AUTO) 13.4 % (2.0-9.0); NEUTROPHILS # (AUTO) 9.2 K/uL (1.8-7.7); NEUTROPHILS % (AUTO) 81.1 % (40.0-70.0); PLATELET COUNT (AUTO) 306 K/uL (150-450); RED CELL DISTRIBUTION WIDTH 13.1 % (11.5-14.5)
[2020-01-19 07:35] LABS: ANION GAP 4 mmol/L (8-16); CALCIUM, TOTAL 8.8 mg/dL (8.8-10.5); CARBON DIOXIDE 34 mmol/L (22-29); CHLORIDE 103 mmol/L (98-107); CREATININE 0.63 mg/dL (0.60-1.30); GLOMERULAR FILTR. RATE CALC > 60 mL/min (>60); GLUCOSE,RANDOM 119 mg/dL (70-110); POTASSIUM 4.3 mmol/L (3.5-5.1); SODIUM SERUM 141 mmol/L (136-145); UREA NITROGEN, BLOOD 11 mg/dL (7-18)
[2020-01-19 07:46] VITALS: BP 153/82
[2020-01-19] MEDS: PANTOPRAZOLE SODIUM 40 MG DR TABLET PO SCH (08:38)
[2020-01-19] MEDS: HEPARIN SODIUM,PORCINE 5,000 UNITS/ML VIAL SQ SCH (08:38)
[2020-01-19] MEDS: CefTRIAXone 1 GM/DEXTROSE 50 ML IV SCH (08:39)
[2020-01-19] MEDS: ACETAMINOPHEN 325 MG TABLET PO PRN (08:48)
[2020-01-19] MEDS: HYDROCODONE/ACETAMINOPHEN 5-325 MG TABLET PO PRN (10:01)
[2020-01-19] MEDS: AZITHROMYCIN 500 MG/NS 250 ML IV SCH (10:01)
[2020-01-19] MEDS ORDERED: PredniSONE 20 MG TABLET PO SCH (11:00)
[2020-01-19 11:07] VITALS: BP 114/66
[2020-01-19 16:34] LABS: QUANTIFERON+, Nil Value 0.01 IU/mL; QUANTIFERON+,Mitogen Value 0.01 IU/mL; QUANTIFERON+,TB1 Antigen Value 0.01 IU/mL; QUANTIFERON, TB GOLD PLUS Indeterminate (Negative)
[2020-01-19 17:18] LABS: GLUCOMETER DEV NAME(LOC) 5S.2A; GLUCOSE,POINT OF CARE 104 MG/DL (70-110)
[2020-01-19] MEDS ORDERED: AMOX1TAB16 PO (17:49)
[2020-01-19] MEDS ORDERED: PANT-31 PO (17:49)
[2020-01-19] MEDS ORDERED: DOXY-354 PO (17:49)
[2020-01-19] MEDS ORDERED: HYDR30CR3 TP (17:50)
[2020-01-19] MEDS ORDERED: IPRA4AER IH (17:50)
[2020-01-19] MEDS ORDERED: PRED10 PO (17:51)
[2020-01-19] MEDS ORDERED: PRED20 PO (17:51)
[2020-01-21 10:07] LABS: LEGIONELLA PNEUMO AG URINE Negative (Negative)
[2020-01-21 12:07] LABS: ORGANISM ID Not indicated.; S PNEUMO SOURCE Urine; STREP PNEUMONIAE AG URINE Negative (Negative); STREP.PNEUMO BODY FLUID CULT. Not indicated.
== END 2020-01-19 19:00 | disposition home or self-care (01) | DRG 139 ==
LOC: EMS 08:47 → 5S 11:35
PROVIDERS: ADMIT Internal Medicine; ATTEND Internal Medicine
DX: J18.9 Pneumonia, unspecified organism (principal); J96.21 Acute and chronic respiratory failure with hypoxia; E43 Unspecified severe protein-calorie malnutrition; J91.8 Pleural effusion in other conditions classified elsewhere; E87.1 Hypo-osmolality and hyponatremia; J44.0 Chronic obstructive pulmonary disease with (acute) lower respiratory infection; J44.1 Chronic obstructive pulmonary disease with (acute) exacerbation; J96.22 Acute and chronic respiratory failure with hypercapnia; Z68.1 Body mass index [BMI] 19.9 or less, adult; Z72.89 Other problems related to lifestyle; Z87.891 Personal history of nicotine dependence; Z20.828 Contact with and (suspected) exposure to other viral communicable diseases; L30.9 Dermatitis, unspecified; D18.03 Hemangioma of intra-abdominal structures
CPT/HCPCS: 71260; 76705; 80074; 82728; 83036; 83605; 83615; 84145; 85379; 86140; 86480; 86635; 87015; 87206; 87449; 87556; 87798; 87804; 87899; 93005; 94640; 94644; 99291; J0131; J0456; J0696; J1644; J2920; J2930; J7030; J7040; J7050

== ENCOUNTER 2021-11-05 18:20 | Inpatient (IN) | payer OTHER ==
[~2021-11-05] VITALS: Ht 182.9 cm; Wt 56.8 kg
[~2021-11-05 18:20] MED LIST changes: -ALBU8.5H8 IH; -ALBUTEROL SULFATE 2.5 MG/0.5 ML NEB SOLUTION NEB ONE; +AMOX1TAB16 PO; +DOXY-354 PO; +HYDR30CR3 TP; +IPRA4AER IH; +PANT-31 PO; +PRED-554 PO; +PRED-729 PO; -SYMB8060 IH
[2021-11-05] MEDS ORDERED: HYDROCODONE/ACETAMINOPHEN 5-325 MG TABLET PO ONE (18:45)
[2021-11-05 19:14] LABS: EOSINOPHILS % (AUTO) 0.9 % (1.0-6.0); HEMATOCRIT 30.2 % (41-53); HEMOGLOBIN 9.9 g/dL (13.5-17.5); MEAN CORPUSCULAR HEMOGLOBIN 28.3 pg (26.0-34.0); MEAN CORPUSCULAR HGB CONC 32.6 G/dL (31.0-37.0); MEAN CORPUSCULAR VOLUME 87 fL (80-100); MONOCYTES # (AUTO) 0.8 K/uL (0.1-1.0); MONOCYTES % (AUTO) 10.5 % (2.0-9.0); NEUTROPHILS % (AUTO) 75.6 % (40.0-70.0); PLATELET COUNT (AUTO) 403 K/uL (150-450); RED BLOOD CELL COUNT(AUTO) 3.49 MIL/uL (4.50-5.90); RED CELL DISTRIBUTION WIDTH 18.2 % (11.5-14.5)
[2021-11-05 19:17] LABS: ANION GAP 8 mmol/L (8-16); CARBON DIOXIDE 30 mmol/L (22-29); CHLORIDE 92 mmol/L (98-107); CREATININE 0.91 mg/dL (0.60-1.30); GLUCOSE,RANDOM 104 mg/dL (70-110); SODIUM SERUM 130 mmol/L (136-145); UREA NITROGEN, BLOOD 10 mg/dL (7-18)
[2021-11-05 19:18] LABS: CALCIUM, TOTAL 8.8 mg/dL (8.8-10.5); GLOMERULAR FILTR. RATE CALC > 60 mL/min (>60)
[2021-11-05] MEDS ORDERED: SODIUM CHLORIDE 0.9% 100 ML ONE (20:14)
[2021-11-05] MEDS ORDERED: IOHEXOL 350 MG/ML 100 ML VIAL ONE (20:14)
[2021-11-05] MEDS ORDERED: AZIT500T4 PO (21:23)
[2021-11-05] MEDS ORDERED: PIPERACILLIN/TAZO 3.375 GM/D5W 50 ML IV ONE (21:45)
[2021-11-05] MEDS ORDERED: ACETAMINOPHEN 325 MG TABLET PO PRN (22:00)
[2021-11-05] MEDS ORDERED: ONDANSETRON HCL 4 MG/2 ML VIAL IVP PRN ×2 (22:00→23:15)
[2021-11-05 22:10] LABS: COVID AG,FIA SOURCE NASOPHARYNGEAL
[2021-11-05 23:15] VITALS: BP 116/65
[2021-11-05] MEDS ORDERED: BISACODYL 10 MG RECTAL RECTAL SUPPOSITORY PR PRN (23:15)
[2021-11-05] MEDS ORDERED: MAGNESIUM HYDROXIDE SUSPENSION 30 ML UDCUP PO PRN (23:15)
[2021-11-05] MEDS ORDERED: SODIUM CHLORIDE 0.9% 500 ML IV ONE (23:56)
[2021-11-06] MEDS ORDERED: VANCOMYCIN HCL 1.25 GM in DEXTROSE 5%-WATER 250 ML IV ONE ×2
[2021-11-06] MEDS: ZOLPIDEM TARTRATE 5 MG TABLET PO PRN (00:15)
[2021-11-06] MEDS: ALBUTEROL SULFATE 2.5 MG/0.5 ML NEB SOLUTION NEB PRN ×2 (02:57→18:52)
[2021-11-06] MEDS: IPRATROPIUM BROMIDE 0.5 MG/2.5 ML NEB SOLUTION NEB PRN ×3 (02:57→18:52)
[2021-11-06] MEDS: PIPERACILLIN/TAZO 3.375 GM/D5W 50 ML IV SCH ×4 (03:56→22:18)
[2021-11-06 04:06] VITALS: BP 127/77
[2021-11-06] MEDS ORDERED: PNEUMOCOCCAL VACCINE POLYVALENT 0.5 ML VIAL [PPSV23] IM. ONE (06:15)
[2021-11-06 06:54] LABS: BASOPHILS % (AUTO) 0.9 % (0.0-2.0); EOSINOPHILS % (AUTO) 2.1 % (1.0-6.0); HEMATOCRIT 27.8 % (41-53); HEMOGLOBIN 9.1 g/dL (13.5-17.5); LYMPHOCYTES # (AUTO) 0.6 K/uL (1.0-4.8); LYMPHOCYTES % (AUTO) 9.1 % (22.0-44.0); MEAN CORPUSCULAR HEMOGLOBIN 28.2 pg (26.0-34.0); MEAN CORPUSCULAR HGB CONC 32.8 G/dL (31.0-37.0); MEAN CORPUSCULAR VOLUME 86 fL (80-100); MONOCYTES # (AUTO) 0.7 K/uL (0.1-1.0); MONOCYTES % (AUTO) 9.7 % (2.0-9.0); NEUTROPHILS # (AUTO) 5.5 K/uL (1.8-7.7); NEUTROPHILS % (AUTO) 78.2 % (40.0-70.0); PLATELET COUNT (AUTO) 383 K/uL (150-450); RED BLOOD CELL COUNT(AUTO) 3.24 MIL/uL (4.50-5.90)
[2021-11-06 07:13] LABS: ALANINE AMINOTRANSFERASE 20 U/L (12-78); ALBUMIN 1.8 g/dL (3.4-5.0); ALKALINE PHOSPHATASE 112 U/L (46-116); ANION GAP 6 mmol/L (8-16); ASPARTATE AMINOTRANSFERASE 23 U/L (15-37); BILIRUBIN,TOTAL 0.5 mg/dL (0.1-1.0); CALCIUM, TOTAL 8.4 mg/dL (8.8-10.5); CARBON DIOXIDE 30 mmol/L (22-29); CHLORIDE 95 mmol/L (98-107); CREATININE 0.95 mg/dL (0.60-1.30); GLOMERULAR FILTR. RATE CALC > 60 mL/min (>60); GLUCOSE,RANDOM 84 mg/dL (70-110); SODIUM SERUM 131 mmol/L (136-145); TOTAL PROTEIN, SERUM 8.5 g/dL (6.4-8.2); UREA NITROGEN, BLOOD 9 mg/dL (7-18)
[2021-11-06] MEDS: HEPARIN SODIUM,PORCINE 5,000 UNITS/ML VIAL SQ SCH ×3 (08:00→16:00)
[2021-11-06 08:27] VITALS: BP 116/65
[2021-11-06] MEDS: PANTOPRAZOLE SODIUM 40 MG/VIAL IVP SCH (08:38)
[2021-11-06] MEDS: DOCUSATE SODIUM 100 MG CAPSULE PO SCH ×2 (08:39→19:55)
[2021-11-06] MEDS: VANCOMYCIN 1GM/WATER(PEG/NADA) 200 ML IV SCH ×2 (08:43→19:59)
[2021-11-06] MEDS ORDERED: 0.9% SODIUM CHLORIDE 5 ML NEB SOLUTION NEB ONE (13:41)
[2021-11-06] MEDS: MORPHINE SULFATE 2 MG/ML SYRINGE IVP PRN (16:19)
[2021-11-06 17:11] VITALS: BP 104/62
[2021-11-06] MEDS: MethylPREDNISolone SOD SUCC 125 MG/2 ML VIAL IVP SCH (19:48)
[2021-11-06 20:14] VITALS: BP 113/63
[2021-11-06] MEDS: BUDESONIDE 0.5 MG/2 ML NEB SOLUTION NEB SCH (20:32)
[2021-11-07] MEDS: MethylPREDNISolone SOD SUCC 125 MG/2 ML VIAL IVP SCH ×4 (01:09→18:19)
[2021-11-07] MEDS: ZOLPIDEM TARTRATE 5 MG TABLET PO PRN (02:25)
[2021-11-07] MEDS: PIPERACILLIN/TAZO 3.375 GM/D5W 50 ML IV SCH ×4 (04:12→22:06)
[2021-11-07 05:11] VITALS: BP 114/62
[2021-11-07 07:41] LABS: BASOPHILS % (AUTO) 0.2 % (0.0-2.0); EOSINOPHILS % (AUTO) 0 % (1.0-6.0); HEMATOCRIT 27.8 % (41-53); LYMPHOCYTES # (AUTO) 0.2 K/uL (1.0-4.8); LYMPHOCYTES % (AUTO) 2.8 % (22.0-44.0); MEAN CORPUSCULAR HEMOGLOBIN 27.9 pg (26.0-34.0); MEAN CORPUSCULAR HGB CONC 32.4 G/dL (31.0-37.0); MEAN CORPUSCULAR VOLUME 86 fL (80-100); MONOCYTES # (AUTO) 0.1 K/uL (0.1-1.0); MONOCYTES % (AUTO) 0.9 % (2.0-9.0); NEUTROPHILS # (AUTO) 8.3 K/uL (1.8-7.7); PLATELET COUNT (AUTO) 381 K/uL (150-450); RED BLOOD CELL COUNT(AUTO) 3.23 MIL/uL (4.50-5.90); RED CELL DISTRIBUTION WIDTH 17.9 % (11.5-14.5)
[2021-11-07 07:44] LABS: NEUTROPHILS % (AUTO) 96.1 % (40.0-70.0)
[2021-11-07 07:50] LABS: ALANINE AMINOTRANSFERASE 20 U/L (12-78); ALBUMIN 1.8 g/dL (3.4-5.0); ALKALINE PHOSPHATASE 103 U/L (46-116); ANION GAP 11 mmol/L (8-16); ASPARTATE AMINOTRANSFERASE 20 U/L (15-37); BILIRUBIN,TOTAL 0.6 mg/dL (0.1-1.0); CALCIUM, TOTAL 8.7 mg/dL (8.8-10.5); CARBON DIOXIDE 28 mmol/L (22-29); CHLORIDE 94 mmol/L (98-107); CREATININE 0.97 mg/dL (0.60-1.30); GLOMERULAR FILTR. RATE CALC > 60 mL/min (>60); GLUCOSE,RANDOM 231 mg/dL (70-110); POTASSIUM 3.7 mmol/L (3.5-5.1); SODIUM SERUM 133 mmol/L (136-145); TOTAL PROTEIN, SERUM 9.1 g/dL (6.4-8.2); UREA NITROGEN, BLOOD 7 mg/dL (7-18); VANCOMYCIN,RANDOM 9.7 mcg/mL (25.0-50.0)
[2021-11-07 08:00] VITALS: BP 126/72
[2021-11-07] MEDS: HEPARIN SODIUM,PORCINE 5,000 UNITS/ML VIAL SQ SCH ×3 (08:00→15:44)
[2021-11-07] MEDS: BUDESONIDE 0.5 MG/2 ML NEB SOLUTION NEB SCH ×2 (08:03→20:02)
[2021-11-07] MEDS: PANTOPRAZOLE SODIUM 40 MG/VIAL IVP SCH (08:28)
[2021-11-07] MEDS: VANCOMYCIN 1GM/WATER(PEG/NADA) 200 ML IV SCH (08:28)
[2021-11-07] MEDS: DOCUSATE SODIUM 100 MG CAPSULE PO SCH ×2 (08:28→22:06)
[2021-11-07] MEDS: ACETAMINOPHEN 325 MG TABLET PO PRN ×2 (08:41→19:14)
[2021-11-07 08:43] VITALS: BP 122/74
[2021-11-07 15:00] VITALS: BP 116/41
[2021-11-07] MEDS: VANCOMYCIN HCL 750 MG in DEXTROSE 5%-WATER 250 ML IV SCH (15:41)
[2021-11-07 20:37] VITALS: BP 122/70
[2021-11-08] MEDS: MethylPREDNISolone SOD SUCC 125 MG/2 ML VIAL IVP SCH ×5 (00:13→23:58)
[2021-11-08] MEDS: HEPARIN SODIUM,PORCINE 5,000 UNITS/ML VIAL SQ SCH ×4 (00:14→23:59)
[2021-11-08] MEDS: VANCOMYCIN HCL 750 MG in DEXTROSE 5%-WATER 250 ML IV SCH ×4 (00:14→23:59)
[2021-11-08] MEDS: ZOLPIDEM TARTRATE 5 MG TABLET PO PRN ×2 (02:10→21:51)
[2021-11-08] MEDS: PIPERACILLIN/TAZO 3.375 GM/D5W 50 ML IV SCH ×4 (04:21→21:51)
[2021-11-08 05:20] VITALS: BP 112/72
[2021-11-08 07:21] LABS: BASOPHILS % (AUTO) 0.1 % (0.0-2.0); EOSINOPHILS % (AUTO) 0 % (1.0-6.0); HEMOGLOBIN 9.5 g/dL (13.5-17.5); LYMPHOCYTES # (AUTO) 0.6 K/uL (1.0-4.8); LYMPHOCYTES % (AUTO) 4.6 % (22.0-44.0); MEAN CORPUSCULAR HEMOGLOBIN 27.2 pg (26.0-34.0); MEAN CORPUSCULAR HGB CONC 31.7 G/dL (31.0-37.0); MEAN CORPUSCULAR VOLUME 86 fL (80-100); MONOCYTES # (AUTO) 0.5 K/uL (0.1-1.0); MONOCYTES % (AUTO) 3.9 % (2.0-9.0); NEUTROPHILS # (AUTO) 12.8 K/uL (1.8-7.7); PLATELET COUNT (AUTO) 460 K/uL (150-450); RED BLOOD CELL COUNT(AUTO) 3.48 MIL/uL (4.50-5.90); RED CELL DISTRIBUTION WIDTH 17.8 % (11.5-14.5)
[2021-11-08 07:35] LABS: ALANINE AMINOTRANSFERASE 20 U/L (12-78); ALBUMIN 1.9 g/dL (3.4-5.0); ALKALINE PHOSPHATASE 96 U/L (46-116); ANION GAP 5 mmol/L (8-16); ASPARTATE AMINOTRANSFERASE 18 U/L (15-37); BILIRUBIN,TOTAL 0.4 mg/dL (0.1-1.0); CALCIUM, TOTAL 9.1 mg/dL (8.8-10.5); CARBON DIOXIDE 31 mmol/L (22-29); CHLORIDE 99 mmol/L (98-107); GLOMERULAR FILTR. RATE CALC > 60 mL/min (>60); GLUCOSE,RANDOM 112 mg/dL (70-110); POTASSIUM 3.3 mmol/L (3.5-5.1); SODIUM SERUM 135 mmol/L (136-145); TOTAL PROTEIN, SERUM 9.3 g/dL (6.4-8.2); UREA NITROGEN, BLOOD 8 mg/dL (7-18)
[2021-11-08] MEDS: BUDESONIDE 0.5 MG/2 ML NEB SOLUTION NEB SCH ×2 (07:36→20:50)
[2021-11-08 07:41] LABS: NEUTROPHILS % (AUTO) 91.4 % (40.0-70.0)
[2021-11-08] MEDS: PANTOPRAZOLE SODIUM 40 MG/VIAL IVP SCH ×2 (08:21→10:15)
[2021-11-08] MEDS: DOCUSATE SODIUM 100 MG CAPSULE PO SCH ×2 (08:21→21:51)
[2021-11-08 08:35] VITALS: BP 110/65
[2021-11-08] MEDS ORDERED: POTASSIUM CHLORIDE 20 MEQ ER TABLET PO ONE (15:00)
[2021-11-08 16:07] VITALS: BP 109/74
[2021-11-08] MEDS ORDERED: SODIUM CHLORIDE 3% 15 ML NEB SOLUTION NEB ONE (19:48)
[2021-11-08 19:57] VITALS: BP 116/64
[2021-11-08] MEDS: ACETAMINOPHEN 325 MG TABLET PO PRN (21:52)
[2021-11-09 04:49] VITALS: BP 116/77
[2021-11-09] MEDS: PIPERACILLIN/TAZO 3.375 GM/D5W 50 ML IV SCH ×4 (04:51→22:07)
[2021-11-09] MEDS: MethylPREDNISolone SOD SUCC 125 MG/2 ML VIAL IVP SCH ×3 (06:30→17:54)
[2021-11-09 06:50] LABS: EOSINOPHILS % (AUTO) 0 % (1.0-6.0); HEMATOCRIT 28.8 % (41-53); HEMOGLOBIN 9.2 g/dL (13.5-17.5); LYMPHOCYTES # (AUTO) 0.5 K/uL (1.0-4.8); LYMPHOCYTES % (AUTO) 3.4 % (22.0-44.0); MEAN CORPUSCULAR HEMOGLOBIN 27.5 pg (26.0-34.0); MEAN CORPUSCULAR VOLUME 86 fL (80-100); MONOCYTES # (AUTO) 0.6 K/uL (0.1-1.0); MONOCYTES % (AUTO) 3.9 % (2.0-9.0); NEUTROPHILS # (AUTO) 14.5 K/uL (1.8-7.7); PLATELET COUNT (AUTO) 474 K/uL (150-450); RED BLOOD CELL COUNT(AUTO) 3.35 MIL/uL (4.50-5.90); RED CELL DISTRIBUTION WIDTH 17.9 % (11.5-14.5)
[2021-11-09 07:05] LABS: NEUTROPHILS % (AUTO) 92.7 % (40.0-70.0)
[2021-11-09 07:35] LABS: ALANINE AMINOTRANSFERASE 29 U/L (12-78); ALBUMIN 1.8 g/dL (3.4-5.0); ALKALINE PHOSPHATASE 92 U/L (46-116); ANION GAP 2 mmol/L (8-16); ASPARTATE AMINOTRANSFERASE 25 U/L (15-37); BILIRUBIN,TOTAL 0.3 mg/dL (0.1-1.0); CALCIUM, TOTAL 8.8 mg/dL (8.8-10.5); CARBON DIOXIDE 34 mmol/L (22-29); CHLORIDE 101 mmol/L (98-107); CREATININE 0.74 mg/dL (0.60-1.30); GLOMERULAR FILTR. RATE CALC > 60 mL/min (>60); GLUCOSE,RANDOM 135 mg/dL (70-110); POTASSIUM 4.3 mmol/L (3.5-5.1); SODIUM SERUM 137 mmol/L (136-145); TOTAL PROTEIN, SERUM 8.6 g/dL (6.4-8.2); UREA NITROGEN, BLOOD 10 mg/dL (7-18)
[2021-11-09] MEDS: PANTOPRAZOLE SODIUM 40 MG/VIAL IVP SCH (08:28)
[2021-11-09] MEDS: VANCOMYCIN HCL 750 MG in DEXTROSE 5%-WATER 250 ML IV SCH ×2 (08:28→16:13)
[2021-11-09] MEDS: DOCUSATE SODIUM 100 MG CAPSULE PO SCH ×2 (08:28→20:08)
[2021-11-09] MEDS: HEPARIN SODIUM,PORCINE 5,000 UNITS/ML VIAL SQ SCH ×2 (08:29→16:00)
[2021-11-09] MEDS: ALBUTEROL SULFATE 2.5 MG/0.5 ML NEB SOLUTION NEB PRN (09:25)
[2021-11-09] MEDS: BUDESONIDE 0.5 MG/2 ML NEB SOLUTION NEB SCH ×2 (09:25→19:30)
[2021-11-09 09:29] VITALS: BP 124/68
[2021-11-09 16:45] VITALS: BP 118/72
[2021-11-09 19:37] VITALS: BP 109/69
[2021-11-09] MEDS: ACETAMINOPHEN 325 MG TABLET PO PRN (20:08)
[2021-11-10] MEDS: MethylPREDNISolone SOD SUCC 125 MG/2 ML VIAL IVP SCH ×4 (00:19→17:17)
[2021-11-10] MEDS: VANCOMYCIN HCL 750 MG in DEXTROSE 5%-WATER 250 ML IV SCH ×3 (00:19→16:33)
[2021-11-10 03:57] VITALS: BP 123/83
[2021-11-10] MEDS: PIPERACILLIN/TAZO 3.375 GM/D5W 50 ML IV SCH ×4 (04:11→21:33)
[2021-11-10 06:14] LABS: BASOPHILS % (AUTO) 0.1 % (0.0-2.0); EOSINOPHILS % (AUTO) 0 % (1.0-6.0); HEMATOCRIT 29.2 % (41-53); HEMOGLOBIN 9.4 g/dL (13.5-17.5); LYMPHOCYTES # (AUTO) 0.5 K/uL (1.0-4.8); LYMPHOCYTES % (AUTO) 5.1 % (22.0-44.0); MEAN CORPUSCULAR HEMOGLOBIN 27.7 pg (26.0-34.0); MEAN CORPUSCULAR HGB CONC 32.2 G/dL (31.0-37.0); MEAN CORPUSCULAR VOLUME 86 fL (80-100); MONOCYTES # (AUTO) 0.3 K/uL (0.1-1.0); MONOCYTES % (AUTO) 2.4 % (2.0-9.0); PLATELET COUNT (AUTO) 496 K/uL (150-450); RED CELL DISTRIBUTION WIDTH 17.6 % (11.5-14.5)
[2021-11-10 06:22] LABS: NEUTROPHILS % (AUTO) 92.4 % (40.0-70.0)
[2021-11-10 06:38] LABS: ALANINE AMINOTRANSFERASE 25 U/L (12-78); ALBUMIN 1.8 g/dL (3.4-5.0); ALKALINE PHOSPHATASE 81 U/L (46-116); ANION GAP -1 mmol/L (8-16); ASPARTATE AMINOTRANSFERASE 17 U/L (15-37); BILIRUBIN,TOTAL 0.3 mg/dL (0.1-1.0); CALCIUM, TOTAL 8.7 mg/dL (8.8-10.5); CARBON DIOXIDE 35 mmol/L (22-29); CHLORIDE 102 mmol/L (98-107); CREATININE 0.77 mg/dL (0.60-1.30); GLOMERULAR FILTR. RATE CALC > 60 mL/min (>60); GLUCOSE,RANDOM 110 mg/dL (70-110); POTASSIUM 4.3 mmol/L (3.5-5.1); SODIUM SERUM 136 mmol/L (136-145); UREA NITROGEN, BLOOD 13 mg/dL (7-18)
[2021-11-10 07:49] VITALS: BP 149/79
[2021-11-10] MEDS: HEPARIN SODIUM,PORCINE 5,000 UNITS/ML VIAL SQ SCH ×3 (08:00→16:00)
[2021-11-10] MEDS: PANTOPRAZOLE SODIUM 40 MG/VIAL IVP SCH (08:36)
[2021-11-10] MEDS: DOCUSATE SODIUM 100 MG CAPSULE PO SCH ×2 (09:00→21:33)
[2021-11-10] MEDS: BUDESONIDE 0.5 MG/2 ML NEB SOLUTION NEB SCH ×2 (09:14→20:08)
[2021-11-10] MEDS ORDERED: MIDAZOLAM HCL 2 MG/2 ML VIAL ONE (11:45)
[2021-11-10] MEDS ORDERED: FentaNYL CITRATE PF 100 MCG/2 ML VIAL ONE (11:45)
[2021-11-10] MEDS ORDERED: LIDOCAINE/PF 1% 30 ML VIAL ONE (11:46)
[2021-11-10] MEDS ORDERED: NALOXONE HCL 0.4 MG/ML VIAL ONE (11:46)
[2021-11-10] MEDS ORDERED: FLUMAZENIL 0.1 MG/ML 5 ML VIAL IVP ONE (11:46)
[2021-11-10 11:54] LABS: INR 1.1 (0.9-1.1); PROTHROMBIN TIME 11.8 SEC (9.4-11.6)
[2021-11-10] MEDS ORDERED: HEPARIN SODIUM 1000 UNITS/NS 500 ML ONE (12:12)
[2021-11-10 14:24] VITALS: BP 145/86
[2021-11-10] MEDS ORDERED: MIDAZOLAM HCL 2 MG/2 ML VIAL IVP ONE (14:30)
[2021-11-10] MEDS: HYDROCODONE/ACETAMINOPHEN 5-325 MG TABLET PO PRN (14:40)
[2021-11-10 19:35] VITALS: BP 100/63
[2021-11-10] MEDS: ACETAMINOPHEN 325 MG TABLET PO PRN (21:33)
[2021-11-11] MEDS: MethylPREDNISolone SOD SUCC 125 MG/2 ML VIAL IVP SCH ×4 (00:19→17:11)
[2021-11-11] MEDS: VANCOMYCIN HCL 750 MG in DEXTROSE 5%-WATER 250 ML IV SCH ×3 (00:19→16:31)
[2021-11-11] MEDS: PIPERACILLIN/TAZO 3.375 GM/D5W 50 ML IV SCH ×4 (04:07→22:12)
[2021-11-11] MEDS: HYDROCODONE/ACETAMINOPHEN 5-325 MG TABLET PO PRN ×2 (04:07→08:45)
[2021-11-11 04:35] VITALS: BP 104/67
[2021-11-11 06:43] LABS: BASOPHILS % (AUTO) 0.2 % (0.0-2.0); EOSINOPHILS % (AUTO) 0.1 % (1.0-6.0); HEMATOCRIT 31.9 % (41-53); HEMOGLOBIN 10.1 g/dL (13.5-17.5); LYMPHOCYTES # (AUTO) 0.6 K/uL (1.0-4.8); LYMPHOCYTES % (AUTO) 4.5 % (22.0-44.0); MEAN CORPUSCULAR HEMOGLOBIN 27.2 pg (26.0-34.0); MEAN CORPUSCULAR HGB CONC 31.7 G/dL (31.0-37.0); MEAN CORPUSCULAR VOLUME 86 fL (80-100); MONOCYTES # (AUTO) 0.7 K/uL (0.1-1.0); MONOCYTES % (AUTO) 4.9 % (2.0-9.0); NEUTROPHILS # (AUTO) 13.1 K/uL (1.8-7.7); PLATELET COUNT (AUTO) 587 K/uL (150-450); RED BLOOD CELL COUNT(AUTO) 3.72 MIL/uL (4.50-5.90); RED CELL DISTRIBUTION WIDTH 17.7 % (11.5-14.5)
[2021-11-11 07:08] LABS: ALANINE AMINOTRANSFERASE 22 U/L (12-78); ALBUMIN 1.7 g/dL (3.4-5.0); ALKALINE PHOSPHATASE 71 U/L (46-116); ANION GAP -2 mmol/L (8-16); ASPARTATE AMINOTRANSFERASE 14 U/L (15-37); BILIRUBIN,TOTAL 0.3 mg/dL (0.1-1.0); CALCIUM, TOTAL 8.8 mg/dL (8.8-10.5); CARBON DIOXIDE 38 mmol/L (22-29); CHLORIDE 98 mmol/L (98-107); CREATININE 0.85 mg/dL (0.60-1.30); GLOMERULAR FILTR. RATE CALC > 60 mL/min (>60); GLUCOSE,RANDOM 132 mg/dL (70-110); POTASSIUM 4.5 mmol/L (3.5-5.1); SODIUM SERUM 134 mmol/L (136-145); TOTAL PROTEIN, SERUM 7.7 g/dL (6.4-8.2); UREA NITROGEN, BLOOD 18 mg/dL (7-18)
[2021-11-11 07:11] LABS: NEUTROPHILS % (AUTO) 90.3 % (40.0-70.0)
[2021-11-11] MEDS: HEPARIN SODIUM,PORCINE 5,000 UNITS/ML VIAL SQ SCH ×4 (08:00→23:52)
[2021-11-11] MEDS: DOCUSATE SODIUM 100 MG CAPSULE PO SCH ×2 (08:15→21:00)
[2021-11-11] MEDS: PANTOPRAZOLE SODIUM 40 MG/VIAL IVP SCH (08:16)
[2021-11-11] MEDS: ALBUTEROL SULFATE 2.5 MG/0.5 ML NEB SOLUTION NEB PRN ×2 (08:49→19:42)
[2021-11-11 08:50] VITALS: BP 119/74
[2021-11-11] MEDS: BUDESONIDE 0.5 MG/2 ML NEB SOLUTION NEB SCH ×2 (08:50→19:42)
[2021-11-11 15:32] VITALS: BP 118/72
[2021-11-11 19:37] VITALS: BP 124/75
[2021-11-11] MEDS: IPRATROPIUM BROMIDE 0.5 MG/2.5 ML NEB SOLUTION NEB PRN (19:42)
[2021-11-11] MEDS: MethylPREDNISolone SOD SUCC 40 MG/ML VIAL IVP SCH (23:48)
[2021-11-12] MEDS: VANCOMYCIN HCL 750 MG in DEXTROSE 5%-WATER 250 ML IV SCH ×4 (00:13→23:12)
[2021-11-12] MEDS: PIPERACILLIN/TAZO 3.375 GM/D5W 50 ML IV SCH ×4 (04:05→21:09)
[2021-11-12 04:42] VITALS: BP 123/80
[2021-11-12] MEDS: MethylPREDNISolone SOD SUCC 40 MG/ML VIAL IVP SCH ×4 (06:14→23:11)
[2021-11-12] MEDS: HYDROCODONE/ACETAMINOPHEN 5-325 MG TABLET PO PRN (06:24)
[2021-11-12 06:25] LABS: BASOPHILS % (AUTO) 0.1 % (0.0-2.0); EOSINOPHILS % (AUTO) 0 % (1.0-6.0); HEMOGLOBIN 9.7 g/dL (13.5-17.5); LYMPHOCYTES # (AUTO) 1.1 K/uL (1.0-4.8); MEAN CORPUSCULAR HEMOGLOBIN 26.1 pg (26.0-34.0); MEAN CORPUSCULAR HGB CONC 30.3 G/dL (31.0-37.0); MEAN CORPUSCULAR VOLUME 86 fL (80-100); MONOCYTES # (AUTO) 1.5 K/uL (0.1-1.0); MONOCYTES % (AUTO) 7.2 % (2.0-9.0); NEUTROPHILS # (AUTO) 18.6 K/uL (1.8-7.7); PLATELET COUNT (AUTO) 586 K/uL (150-450); RED CELL DISTRIBUTION WIDTH 18.1 % (11.5-14.5)
[2021-11-12 06:38] LABS: NEUTROPHILS % (AUTO) 87.7 % (40.0-70.0)
[2021-11-12 06:41] LABS: ALANINE AMINOTRANSFERASE 21 U/L (12-78); ALBUMIN 1.7 g/dL (3.4-5.0); ALKALINE PHOSPHATASE 69 U/L (46-116); ANION GAP 0 mmol/L (8-16); ASPARTATE AMINOTRANSFERASE 15 U/L (15-37); BILIRUBIN,TOTAL 0.3 mg/dL (0.1-1.0); CALCIUM, TOTAL 8.6 mg/dL (8.8-10.5); CARBON DIOXIDE 37 mmol/L (22-29); CHLORIDE 98 mmol/L (98-107); CREATININE 0.79 mg/dL (0.60-1.30); GLOMERULAR FILTR. RATE CALC > 60 mL/min (>60); GLUCOSE,RANDOM 150 mg/dL (70-110); POTASSIUM 4.1 mmol/L (3.5-5.1); SODIUM SERUM 135 mmol/L (136-145); TOTAL PROTEIN, SERUM 7.1 g/dL (6.4-8.2); UREA NITROGEN, BLOOD 16 mg/dL (7-18); VANCOMYCIN,RANDOM 24.2 mcg/mL (25.0-50.0)
[2021-11-12] MEDS: HEPARIN SODIUM,PORCINE 5,000 UNITS/ML VIAL SQ SCH ×3 (08:00→23:12)
[2021-11-12 08:10] VITALS: BP 126/82
[2021-11-12] MEDS: BUDESONIDE 0.5 MG/2 ML NEB SOLUTION NEB SCH ×2 (08:12→20:26)
[2021-11-12] MEDS: PANTOPRAZOLE SODIUM 40 MG/VIAL IVP SCH (08:16)
[2021-11-12] MEDS: DOCUSATE SODIUM 100 MG CAPSULE PO SCH ×2 (08:54→21:09)
[2021-11-12 16:00] VITALS: BP 111/61
[2021-11-12 20:19] VITALS: BP 116/74
[2021-11-12] MEDS: ZOLPIDEM TARTRATE 5 MG TABLET PO PRN (21:09)
[2021-11-13] MEDS: PIPERACILLIN/TAZO 3.375 GM/D5W 50 ML IV SCH ×4 (03:45→21:13)
[2021-11-13 05:26] VITALS: BP 105/52
[2021-11-13 05:43] LABS: BASOPHILS % (AUTO) 0.4 % (0.0-2.0); EOSINOPHILS % (AUTO) 0.1 % (1.0-6.0); HEMOGLOBIN 10.6 g/dL (13.5-17.5); LYMPHOCYTES % (AUTO) 4.3 % (22.0-44.0); MEAN CORPUSCULAR HEMOGLOBIN 27.7 pg (26.0-34.0); MEAN CORPUSCULAR HGB CONC 32.2 G/dL (31.0-37.0); MEAN CORPUSCULAR VOLUME 86 fL (80-100); MONOCYTES # (AUTO) 1.5 K/uL (0.1-1.0); MONOCYTES % (AUTO) 6.6 % (2.0-9.0); NEUTROPHILS # (AUTO) 20.4 K/uL (1.8-7.7); NEUTROPHILS % (AUTO) 88.6 % (40.0-70.0); PLATELET COUNT (AUTO) 628 K/uL (150-450); RED BLOOD CELL COUNT(AUTO) 3.83 MIL/uL (4.50-5.90); RED CELL DISTRIBUTION WIDTH 19.1 % (11.5-14.5)
[2021-11-13 05:49] LABS: ANION GAP -3 mmol/L (8-16); CALCIUM, TOTAL 8.5 mg/dL (8.8-10.5); CARBON DIOXIDE 37 mmol/L (22-29); CHLORIDE 98 mmol/L (98-107); CREATININE 0.91 mg/dL (0.60-1.30); GLOMERULAR FILTR. RATE CALC > 60 mL/min (>60); GLUCOSE,RANDOM 136 mg/dL (70-110); POTASSIUM 4.1 mmol/L (3.5-5.1); SODIUM SERUM 132 mmol/L (136-145); UREA NITROGEN, BLOOD 20 mg/dL (7-18)
[2021-11-13] MEDS: MethylPREDNISolone SOD SUCC 40 MG/ML VIAL IVP SCH ×4 (05:56→23:15)
[2021-11-13] MEDS: HEPARIN SODIUM,PORCINE 5,000 UNITS/ML VIAL SQ SCH ×3 (08:00→23:19)
[2021-11-13] MEDS ORDERED: SODIUM CHLORIDE 0.9% 250 ML IV ONE (08:25)
[2021-11-13] MEDS: DOCUSATE SODIUM 100 MG CAPSULE PO SCH ×2 (08:26→21:12)
[2021-11-13] MEDS: PANTOPRAZOLE SODIUM 40 MG/VIAL IVP SCH (08:27)
[2021-11-13 08:32] VITALS: BP 116/70
[2021-11-13] MEDS: BUDESONIDE 0.5 MG/2 ML NEB SOLUTION NEB SCH ×2 (09:11→20:43)
[2021-11-13] MEDS: MORPHINE SULFATE 2 MG/ML SYRINGE IVP PRN (09:13)
[2021-11-13] MEDS: VANCOMYCIN HCL 750 MG in DEXTROSE 5%-WATER 250 ML IV SCH ×3 (10:05→23:15)
[2021-11-13 16:08] VITALS: BP 119/68
[2021-11-13 19:55] VITALS: BP 115/57
[2021-11-13] MEDS: ZOLPIDEM TARTRATE 5 MG TABLET PO PRN (23:15)
[2021-11-13] MEDS: HYDROCODONE/ACETAMINOPHEN 5-325 MG TABLET PO PRN (23:15)
[2021-11-14] MEDS: PIPERACILLIN/TAZO 3.375 GM/D5W 50 ML IV SCH ×4 (04:33→21:23)
[2021-11-14 04:43] VITALS: BP_SYST 124; BP_SYST 135; BP_DIAS 65; BP_DIAS 86
[2021-11-14] MEDS: MethylPREDNISolone SOD SUCC 40 MG/ML VIAL IVP SCH ×3 (05:48→23:54)
[2021-11-14 06:07] LABS: HEMATOCRIT 34.9 % (41-53); MEAN CORPUSCULAR HEMOGLOBIN 27.9 pg (26.0-34.0); MEAN CORPUSCULAR HGB CONC 31.6 G/dL (31.0-37.0); MEAN CORPUSCULAR VOLUME 88 fL (80-100); PLATELET COUNT (AUTO) 577 K/uL (150-450); RED BLOOD CELL COUNT(AUTO) 3.95 MIL/uL (4.50-5.90); RED CELL DISTRIBUTION WIDTH 19.9 % (11.5-14.5)
[2021-11-14 06:28] LABS: ANION GAP 2 mmol/L (8-16); CALCIUM, TOTAL 8.5 mg/dL (8.8-10.5); CARBON DIOXIDE 35 mmol/L (22-29); CHLORIDE 97 mmol/L (98-107); CREATININE 0.91 mg/dL (0.60-1.30); GLOMERULAR FILTR. RATE CALC > 60 mL/min (>60); GLUCOSE,RANDOM 171 mg/dL (70-110); POTASSIUM 4.1 mmol/L (3.5-5.1); SODIUM SERUM 134 mmol/L (136-145); UREA NITROGEN, BLOOD 22 mg/dL (7-18)
[2021-11-14 06:46] LABS: BAND NEUTROPHILS % (MANUAL) 5 % (0-5); LYMPHOCYTES % (MANUAL) 9 % (22-44); METAMYELOCYTES % 2 % (0-0); MONOCYTES % (MANUAL) 1 % (2-9); SEGMENTED NEUTROPHILS % 83 % (40-70)
[2021-11-14] MEDS: HEPARIN SODIUM,PORCINE 5,000 UNITS/ML VIAL SQ SCH ×4 (08:00→23:57)
[2021-11-14] MEDS: VANCOMYCIN HCL 750 MG in DEXTROSE 5%-WATER 250 ML IV SCH ×3 (08:04→23:54)
[2021-11-14] MEDS: PANTOPRAZOLE SODIUM 40 MG/VIAL IVP SCH (08:05)
[2021-11-14 08:06] VITALS: BP 139/97
[2021-11-14] MEDS: DOCUSATE SODIUM 100 MG CAPSULE PO SCH ×2 (08:11→20:29)
[2021-11-14] MEDS: BUDESONIDE 0.5 MG/2 ML NEB SOLUTION NEB SCH ×2 (08:28→20:36)
[2021-11-14 16:00] VITALS: BP 113/70
[2021-11-14] MEDS: HYDROCODONE/ACETAMINOPHEN 5-325 MG TABLET PO PRN (18:41)
[2021-11-14 19:58] VITALS: BP 103/57
[2021-11-14] MEDS: ALBUTEROL SULFATE 2.5 MG/0.5 ML NEB SOLUTION NEB PRN (20:36)
[2021-11-14] MEDS: ZOLPIDEM TARTRATE 5 MG TABLET PO PRN (23:57)
[2021-11-15] MEDS: PIPERACILLIN/TAZO 3.375 GM/D5W 50 ML IV SCH ×2 (03:53→11:06)
[2021-11-15 04:00] VITALS: BP 128/75
[2021-11-15 07:54] VITALS: BP 139/77
[2021-11-15] MEDS: BUDESONIDE 0.5 MG/2 ML NEB SOLUTION NEB SCH ×2 (08:07→20:49)
[2021-11-15 08:36] LABS: HEMATOCRIT 35.5 % (41-53); HEMOGLOBIN 11.3 g/dL (13.5-17.5); MEAN CORPUSCULAR HGB CONC 31.9 G/dL (31.0-37.0); MEAN CORPUSCULAR VOLUME 88 fL (80-100); PLATELET COUNT (AUTO) 548 K/uL (150-450); RED BLOOD CELL COUNT(AUTO) 4.04 MIL/uL (4.50-5.90); RED CELL DISTRIBUTION WIDTH 20.9 % (11.5-14.5)
[2021-11-15 08:49] LABS: ANION GAP 0 mmol/L (8-16); CALCIUM, TOTAL 8.7 mg/dL (8.8-10.5); CARBON DIOXIDE 38 mmol/L (22-29); CHLORIDE 98 mmol/L (98-107); CREATININE 0.82 mg/dL (0.60-1.30); GLOMERULAR FILTR. RATE CALC > 60 mL/min (>60); GLUCOSE,RANDOM 97 mg/dL (70-110); SODIUM SERUM 136 mmol/L (136-145); UREA NITROGEN, BLOOD 21 mg/dL (7-18); VANCOMYCIN,RANDOM 17.5 mcg/mL (25.0-50.0)
[2021-11-15] MEDS: PANTOPRAZOLE SODIUM 40 MG/VIAL IVP SCH (08:49)
[2021-11-15] MEDS: VANCOMYCIN HCL 750 MG in DEXTROSE 5%-WATER 250 ML IV SCH (08:49)
[2021-11-15] MEDS: HEPARIN SODIUM,PORCINE 5,000 UNITS/ML VIAL SQ SCH ×3 (08:50→23:53)
[2021-11-15 08:56] LABS: BAND NEUTROPHILS % (MANUAL) 4 % (0-5); LYMPHOCYTES % (MANUAL) 6 % (22-44); METAMYELOCYTES % 3 % (0-0); MONOCYTES % (MANUAL) 8 % (2-9); MYELOCYTES % 4 % (0-0); SEGMENTED NEUTROPHILS % 75 % (40-70)
[2021-11-15] MEDS: DOCUSATE SODIUM 100 MG CAPSULE PO SCH ×2 (08:56→20:42)
[2021-11-15] MEDS: PredniSONE 20 MG TABLET PO SCH (08:57)
[2021-11-15] MEDS: HYDROCODONE/ACETAMINOPHEN 5-325 MG TABLET PO PRN (13:28)
[2021-11-15 15:58] VITALS: BP 133/78
[2021-11-15] MEDS: AMPICILLIN SODIUM/SULBACTAM NA 3 GM in SODIUM CHLORIDE 0.9% 100 ML IV SCH ×2 (16:06→22:35)
[2021-11-15 19:42] VITALS: BP 122/70
[2021-11-15] MEDS: ALBUTEROL SULFATE 2.5 MG/0.5 ML NEB SOLUTION NEB PRN (20:49)
[2021-11-15] MEDS: ZOLPIDEM TARTRATE 5 MG TABLET PO PRN (23:56)
[2021-11-16 03:50] VITALS: BP 133/86
[2021-11-16] MEDS: AMPICILLIN SODIUM/SULBACTAM NA 3 GM in SODIUM CHLORIDE 0.9% 100 ML IV SCH ×2 (04:37→10:00)
[2021-11-16 06:26] LABS: ANION GAP 1 mmol/L (8-16); CALCIUM, TOTAL 8.3 mg/dL (8.8-10.5); CARBON DIOXIDE 36 mmol/L (22-29); CHLORIDE 100 mmol/L (98-107); CREATININE 0.69 mg/dL (0.60-1.30); GLOMERULAR FILTR. RATE CALC > 60 mL/min (>60); GLUCOSE,RANDOM 79 mg/dL (70-110); POTASSIUM 3.7 mmol/L (3.5-5.1); SODIUM SERUM 137 mmol/L (136-145); UREA NITROGEN, BLOOD 20 mg/dL (7-18)
[2021-11-16] MEDS: HEPARIN SODIUM,PORCINE 5,000 UNITS/ML VIAL SQ SCH (08:00)
[2021-11-16 08:30] VITALS: BP 126/82
[2021-11-16] MEDS: BUDESONIDE 0.5 MG/2 ML NEB SOLUTION NEB SCH (08:47)
[2021-11-16] MEDS: ACETAMINOPHEN 325 MG TABLET PO PRN (08:56)
[2021-11-16] MEDS: PredniSONE 20 MG TABLET PO SCH (08:56)
[2021-11-16] MEDS: PANTOPRAZOLE SODIUM 40 MG/VIAL IVP SCH (08:57)
[2021-11-16] MEDS: DOCUSATE SODIUM 100 MG CAPSULE PO SCH (08:57)
[2021-11-16] MEDS ORDERED: AMOX1TAB16 PO ×2 (12:07→12:29)
[2021-11-16] MEDS ORDERED: PRED-554 PO (12:07)
[2021-11-16] MEDS ORDERED: PRED-549 PO (12:07)
[2021-11-16] MEDS ORDERED: PRED-729 PO (12:07)
== END 2021-11-16 14:10 | disposition home or self-care (01) | DRG 137 ==
LOC: EMS 18:26 → 6N 22:00
PROVIDERS: ADMIT Hospitalist; ATTEND Hospitalist
PROC: 0B9K3ZZ Drainage of Right Lung, Percutaneous Approach (ICD-10-PCS; principal; 2021-11-10)
DX: J85.1 Abscess of lung with pneumonia (principal); J94.8 Other specified pleural conditions; E87.1 Hypo-osmolality and hyponatremia; J45.901 Unspecified asthma with (acute) exacerbation; J43.9 Emphysema, unspecified; T38.0X5A Adverse effect of glucocorticoids and synthetic analogues, initial encounter; D64.9 Anemia, unspecified; Z87.891 Personal history of nicotine dependence; Y92.89 Other specified places as the place of occurrence of the external cause; Z20.822 Contact with and (suspected) exposure to COVID-19
CPT/HCPCS: 71045; 71250; 71275; 75989; 80048; 80053; 80202; 84145; 84484; 85025; 85379; 85610; 87015; 87040; 87070; 87081; 87101; 87205; 87206; 93005; 94640; 99285; C9113; J0295; J1644; J2250; J2270; J2310; J2543; J2920; J2930; J3010; J3370; J3490; J7040; J7050; J7060; Q9967; 36415-L1; 36415-TC; J7613

== ENCOUNTER 2021-12-13 16:13 | Emergency (ER) | payer OTHER ==
[~2021-12-13 16:13] MED LIST changes: -DOXY-354 PO; +PRED-549 PO
== END 2021-12-13 17:31 | disposition left against medical advice (07) ==
LOC: EMS 16:23
DX: Z53.21 Procedure and treatment not carried out due to patient leaving prior to being seen by health care provider (principal)

== ENCOUNTER 2022-01-15 09:23 | Emergency (ER) | payer OTHER ==
[~2022-01-15] VITALS: Ht 180.3 cm; Wt 60.0 kg
[2022-01-15] MEDS ORDERED: ALBU8HFA IH (10:03)
[2022-01-15 14:19] LABS: BASOPHILS % (AUTO) 0.7 % (0.0-2.0); EOSINOPHILS % (AUTO) 3.7 % (1.0-6.0); HEMATOCRIT 42.6 % (41-53); HEMOGLOBIN 14.2 g/dL (13.5-17.5); LYMPHOCYTES # (AUTO) 0.9 K/uL (1.0-4.8); LYMPHOCYTES % (AUTO) 24.2 % (22.0-44.0); MEAN CORPUSCULAR HEMOGLOBIN 28.9 pg (26.0-34.0); MEAN CORPUSCULAR HGB CONC 33.3 G/dL (31.0-37.0); MEAN CORPUSCULAR VOLUME 87 fL (80-100); MONOCYTES # (AUTO) 0.5 K/uL (0.1-1.0); MONOCYTES % (AUTO) 13.5 % (2.0-9.0); NEUTROPHILS # (AUTO) 2.2 K/uL (1.8-7.7); NEUTROPHILS % (AUTO) 57.9 % (40.0-70.0); PLATELET COUNT (AUTO) 232 K/uL (150-450); RED BLOOD CELL COUNT(AUTO) 4.92 MIL/uL (4.50-5.90); RED CELL DISTRIBUTION WIDTH 16.2 % (11.5-14.5)
[2022-01-15 14:26] LABS: ANION GAP 8 mmol/L (8-16); CARBON DIOXIDE 28 mmol/L (22-29); CHLORIDE 101 mmol/L (98-107); CREATININE 0.93 mg/dL (0.60-1.30); GLOMERULAR FILTR. RATE CALC > 60 mL/min (>60); GLUCOSE,RANDOM 76 mg/dL (70-110); SODIUM SERUM 137 mmol/L (136-145); UREA NITROGEN, BLOOD 5 mg/dL (7-18)
[2022-01-15 14:32] LABS: ALANINE AMINOTRANSFERASE 52 U/L (12-78); ALBUMIN 3.7 g/dL (3.4-5.0); ALKALINE PHOSPHATASE 102 U/L (46-116); ASPARTATE AMINOTRANSFERASE 86 U/L (15-37); BILIRUBIN,TOTAL 0.7 mg/dL (0.1-1.0); TOTAL PROTEIN, SERUM 8.5 g/dL (6.4-8.2)
[2022-01-15 15:04] VITALS: BP 151/86
== END 2022-01-15 15:13 | disposition home or self-care (01) ==
LOC: EMS 09:23
DX: Z46.82 Encounter for fitting and adjustment of non-vascular catheter (principal); J45.909 Unspecified asthma, uncomplicated; Z79.899 Other long term (current) drug therapy
CPT/HCPCS: 71046; 71250; 80053; 85025; 99285; 36415-L1; 36415-TC

== ENCOUNTER 2024-09-28 22:45 | Emergency (ER) | payer OTHER ==
[~2024-09-28] VITALS: Ht 180.3 cm; Wt 61.4 kg
[~2024-09-28 22:45] MED LIST changes: +ACET-66 PO; +ALBU18HF12 IH; +AMLO5TAB66 PO; -AMOX1TAB16 PO; -BECL10.6 IH; +FOLI-130 PO; -HYDR30CR3 TP; -IPRA4AER IH; +LEVO750T68 PO; +MOME13HF IH; -PANT-31 PO; -PRED-549 PO; -PRED-554 PO; +THIA100T80 PO
[2024-09-29] VITALS: TEMP 98.9
[2024-09-29] MEDS: PERTUSS(ACELL),DIPH,TET/PF 0.5 ML SYRINGE [ADULT] IM. ONE (00:18)
[2024-09-29] MEDS: BACITRACIN 0.9 GM PACKET OINTMENT TP ONE (00:19)
[2024-09-29] MEDS: ACETAMINOPHEN 500 MG TABLET PO ONE (00:19)
[2024-09-29] MEDS: IBUPROFEN 600 MG TABLET PO ONE (00:19)
[2024-09-29 00:45] VITALS: BP 145/72; PULSE 95; RESP 16; O2SAT 98
[2024-09-29] MEDS ORDERED: BACI28.410 TP (00:47)
[2024-09-29] MEDS ORDERED: ACET-66 PO (00:47)
[2024-09-29] MEDS ORDERED: IBUP-1554 PO (00:47)
== END 2024-09-29 02:31 | disposition home or self-care (01) ==
LOC: EMS 22:45
DX: S90.122A Contusion of left lesser toe(s) without damage to nail, initial encounter (principal); F10.129 Alcohol abuse with intoxication, unspecified; J44.9 Chronic obstructive pulmonary disease, unspecified; I10 Essential (primary) hypertension; Z79.51 Long term (current) use of inhaled steroids; Z79.52 Long term (current) use of systemic steroids; W22.8XXA Striking against or struck by other objects, initial encounter; Y93.89 Activity, other specified; Y92.89 Other specified places as the place of occurrence of the external cause; Y99.8 Other external cause status; Y90.6 Blood alcohol level of 120-199 mg/100 ml
CPT/HCPCS: 90471; 90715; 99284

== ENCOUNTER 2024-09-29 13:50 | Emergency (ER) | payer OTHER ==
[~2024-09-29] VITALS: Ht 180.3 cm; Wt 79.5 kg
[~2024-09-29 13:50] MED LIST changes: +BACI28.410 TP; +IBUP-1554 PO
[2024-09-29 14:37] VITALS: BP 139/82; PULSE 111; RESP 22; TEMP 98.1; O2SAT 96
[2024-09-29] MEDS: IBUPROFEN 400 MG TABLET PO ONE (15:27)
[2024-09-29] MEDS: ACETAMINOPHEN 500 MG TABLET PO ONE (15:27)
[2024-09-29] MEDS ORDERED: IBUPROFEN 600 MG TABLET PO ONE (15:30)
[2024-09-29] MEDS ORDERED: ACETAMINOPHEN 500 MG TABLET PO ONE (15:30)
== END 2024-09-29 16:23 | disposition home or self-care (01) ==
LOC: EMS 13:52
DX: S91.205A Unspecified open wound of left lesser toe(s) with damage to nail, initial encounter (principal); J44.89 Other specified chronic obstructive pulmonary disease; I10 Essential (primary) hypertension; Z79.51 Long term (current) use of inhaled steroids; Z79.52 Long term (current) use of systemic steroids; Z98.890 Other specified postprocedural states; X58.XXXA Exposure to other specified factors, initial encounter; Y93.89 Activity, other specified; Y92.89 Other specified places as the place of occurrence of the external cause; Y99.8 Other external cause status
CPT/HCPCS: 99283